=== PATIENT | male | born 1965 | race African-American/Black ===

== ENCOUNTER 2018-12-31 13:51 | Inpatient (IN) | payer OTHER ==
[2018-12-31 18:07] VITALS: BMI 25.7
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
[2018-12-31] MEDS ORDERED: MELATONIN 5 MG TABLETS PO PRN (18:47)
[2018-12-31] MEDS ORDERED: NICOTINE POLACRILEX 4 MG GUM BUC PRN (18:47)
[2018-12-31] MEDS ORDERED: BISMUTH SUBSALICYLATE 524 MG/30 ML UD PO PRN (18:47)
[2018-12-31] MEDS ORDERED: hydrOXYzine PAMOATE 25 MG CAPSULE (FP) PO PRN (18:47)
[2018-12-31] MEDS ORDERED: ACETAMINOPHEN 325 MG TABLET (FP) PO PRN ×2 (18:47)
[2018-12-31] MEDS ORDERED: METHOCARBAMOL 500 MG TABLET PO PRN (18:47)
[2018-12-31] MEDS ORDERED: chlordiazePOXIDE HCL 25 MG CAPSULE PO PRN (18:47)
[2018-12-31] MEDS ORDERED: IBUPROFEN 400 MG TABLET (FP) PO PRN (18:47)
[2018-12-31] MEDS ORDERED: MAG HYDROX/AL HYDROX/SIMETH 30 ML UNIT-DOSE CUP PO PRN (18:47)
[2018-12-31] MEDS ORDERED: chlordiazePOXIDE HCL 25 MG CAPSULE PO ONE (18:47)
[2018-12-31] MEDS ORDERED: MENTHOL/PHENOL 1 EACH UD MM PRN (18:47)
[2018-12-31] MEDS ORDERED: ONDANSETRON *ODT* 4 MG TABLET SL PRN (18:47)
[2018-12-31] MEDS ORDERED: MAGNESIUM HYDROX 2400MG/30ML ORAL SUSPENSION 30 ML CUP PO PRN (18:47)
[2018-12-31] MEDS ORDERED: MAGNESIUM CITRATE 300 ML BOTTLE PO PRN (18:47)
[2018-12-31] MEDS: THIAMINE HCL 100 MG TABLET (FP) PO SCH (22:44)
[2018-12-31] MEDS: chlordiazePOXIDE HCL 25 MG CAPSULE PO SCH (22:44)
[2019-01-01] MEDS: chlordiazePOXIDE HCL 25 MG CAPSULE PO SCH ×4 (05:39→23:17)
[2019-01-01 09:38] LABS: HEMATOCRIT 43.9 % (35.4-49); HEMOGLOBIN 14.8 GM/dL (11.7-16.9); MCH 33.3 pg (25.7-33.7); MCHC 33.6 g/dl (32.0-35.9); MEAN CELL VOLUME 99.2 fl (80-96); MEAN PLT VOLUME 7.8 fl (7.5-11.1); PLATELET COUNT 251 K/MM3 (134-434); RBC 4.43 M/mm3 (4.00-5.60); RDW 12.8 % (11.9-15.9); WHITE BLOOD COUNT 5.2 K/mm3 (4.0-10.0)
[2019-01-01 10:02] LABS: ALBUMIN 3.6 g/dl (3.4-5.0); BILIRUBIN,TOTAL 0.6 mg/dL (0.2-1); BLOOD UREA NITROGEN 20.1 mg/dL (7-18); CALCIUM 8.5 mg/dL (8.5-10.1); CREATININE 1.1 mg/dL (0.55-1.3); POTASSIUM 4.2 mmol/L (3.5-5.1); TOT PROT 6.7 g/dl (6.4-8.2)
--- NOTE | 2019-01-01 10:05 | PN ---
S CIWA - CIWA Score Nausea/Vomitin Muscle Tremors: 2 Anxiety: 2 Agitation: 2 Paroxysmal Sweats: 1-Minimal Palms Moist Orientation: 0-Oriented Tacttile Disturbances: 1-Very Mild Itch/Numbness Auditory Disturbances: 1-Very Mild Visual Disturbances: 0-None Headache: 2-Mild CIWA-Ar Total Score: 13 [facility] Progress Note (SOAP) Subjective: alert,irritable,anxious,interrupted sleep,tremor Objective: 01/01/19 10:04 Vital Signs Temperature 98.1 F 01/01/19 09:10 Pulse Rate 70 01/01/19 09:10 Respiratory Rate 18 01/01/19 09:10 Blood Pressure 104/47 L 01/01/19 09:10 O2 Sat by Pulse Oximetry (%) 01/01/19 10:04 Laboratory Last Values WBC 5.2 K/mm3 (4.0-10.0) 01/01/19 07:30 RBC 4.43 M/mm3 (4.00-5.60) 01/01/19 07:30 Hgb 14.8 GM/dL (11.7-16.9) 01/01/19 07:30 Hct 43.9 % (35.4-49) 01/01/19 07:30 MCV 99.2 fl (80-96) H 01/01/19 07:30 MCH 33.3 pg (25.7-33.7) 01/01/19 07:30 MCHC 33.6 g/dl (32.0-35.9) 01/01/19 07:30 RDW 12.8 % (11.9-15.9) 01/01/19 07:30 Plt Count 251 K/MM3 (134-434) 01/01/19 07:30 MPV 7.8 fl (7.5-11.1) 01/01/19 07:30 Sodium 138 mmol/L (136-145) 01/01/19 07:30 Potassium 4.2 mmol/L (3.5-5.1) 01/01/19 07:30 Chloride 105 mmol/L (98-107) 01/01/19 07:30 Carbon Dioxide 27 mmol/L (21-32) 01/01/19 07:30 Anion Gap 6 MMOL/L (8-16) L 01/01/19 07:30 BUN 20.1 mg/dL (7-18) H 01/01/19 07:30 Creatinine 1.1 mg/dL (0.55-1.3) 01/01/19 07:30 Est GFR (CKD-EPI)AfAm 87.13 01/01/19 07:30 Est GFR (CKD-EPI)NonAf 75.17 01/01/19 07:30 Random Glucose 87 mg/dL (74-106) 01/01/19 07:30 Calcium 8.5 mg/dL (8.5-10.1) 01/01/19 07:30 Total Bilirubin 0.6 mg/dL (0.2-1) 01/01/19 07:30 AST 22 U/L (15-37) 01/01/19 07:30 ALT 26 U/L (13-61) 01/01/19 07:30 Alkaline Phosphatase 56 U/L (45-117) 01/01/19 07:30 Total Protein 6.7 g/dl (6.4-8.2) 01/01/19 07:30 Albumin 3.6 g/dl (3.4-5.0) 01/01/19 07:30 Assessment: 01/01/19 10:05 withdrawal symptom Plan: continue detox
[2019-01-01] MEDS: PRENATAL VITAMINS W/ FOLIC ACID TABLET (FP) PO SCH (11:00)
[2019-01-01] MEDS: NICOTINE 21 MG/24 HOURS TOPICAL PATCH TD SCH (11:00)
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
--- NOTE | 2019-01-01 12:33 | EKG ---
Test Reason : Blood Pressure : / mmHG Vent. Rate : 065 BPM Atrial Rate : 065 BPM P-R Int : 164 ms QRS Dur : 076 ms QT Int : 414 ms P-R-T Axes : 065 060 070 degrees QTc Int : 430 ms NORMAL SINUS RHYTHM NORMAL ECG NO PREVIOUS ECGS AVAILABLE Confirmed by MICHELLE REYNOLDS, AIME ([id number]) on 01/01/2019 12:33:17 PM Referred By: Confirmed By:AIME MARTINEZ MD
[2019-01-01] MEDS: GABAPENTIN 300 MG CAPSULE (FP) PO SCH ×2 (13:00→23:17)
[2019-01-01] MEDS: DIVALPROEX SODIUM 500 MG TABLET E.C. PO SCH ×3 (13:30→23:17)
[2019-01-01] MEDS: buPROPion HCL 100 MG TABLET PO SCH ×2 (13:46→13:51)
[2019-01-01] MEDS: QUEtiapine FUMARATE 200 MG TABLET PO SCH (23:18)
[2019-01-01] MEDS: OLANZapine 10 MG TABLET PO SCH (23:18)
[2019-01-01] MEDS: THIAMINE HCL 100 MG TABLET (FP) PO SCH (23:18)
[2019-01-02] MEDS: chlordiazePOXIDE HCL 25 MG CAPSULE PO SCH ×3 (07:26→19:04)
--- NOTE | 2019-01-02 10:00 | PN ---
S CIWA - CIWA Score Nausea/Vomitin Muscle Tremors: 2 Anxiety: 2 Agitation: 2 Paroxysmal Sweats: No Perspiration Orientation: 0-Oriented Tacttile Disturbances: 0-None Auditory Disturbances: 1-Very Mild Visual Disturbances: 0-None Headache: 1-Very Mild CIWA-Ar Total Score: 10 S Progress Note (SOAP) Subjective: alert,irritable,anxious,interrupted sleep Objective: 01/02/19 09:57 Vital Signs Temperature 97.5 F L 01/02/19 06:00 Pulse Rate 58 L 01/02/19 06:00 Respiratory Rate 18 01/02/19 06:00 Blood Pressure 113/73 01/02/19 06:00 O2 Sat by Pulse Oximetry (%) 01/02/19 09:58 Laboratory Last Values WBC 5.2 K/mm3 (4.0-10.0) 01/01/19 07:30 RBC 4.43 M/mm3 (4.00-5.60) 01/01/19 07:30 Hgb 14.8 GM/dL (11.7-16.9) 01/01/19 07:30 Hct 43.9 % (35.4-49) 01/01/19 07:30 MCV 99.2 fl (80-96) H 01/01/19 07:30 MCH 33.3 pg (25.7-33.7) 01/01/19 07:30 MCHC 33.6 g/dl (32.0-35.9) 01/01/19 07:30 RDW 12.8 % (11.9-15.9) 01/01/19 07:30 Plt Count 251 K/MM3 (134-434) 01/01/19 07:30 MPV 7.8 fl (7.5-11.1) 01/01/19 07:30 Sodium 138 mmol/L (136-145) 01/01/19 07:30 Potassium 4.2 mmol/L (3.5-5.1) 01/01/19 07:30 Chloride 105 mmol/L (98-107) 01/01/19 07:30 Carbon Dioxide 27 mmol/L (21-32) 01/01/19 07:30 Anion Gap 6 MMOL/L (8-16) L 01/01/19 07:30 BUN 20.1 mg/dL (7-18) H 01/01/19 07:30 Creatinine 1.1 mg/dL (0.55-1.3) 01/01/19 07:30 Est GFR (CKD-EPI)AfAm 87.13 01/01/19 07:30 Est GFR (CKD-EPI)NonAf 75.17 01/01/19 07:30 Random Glucose 87 mg/dL (74-106) 01/01/19 07:30 Calcium 8.5 mg/dL (8.5-10.1) 01/01/19 07:30 Total Bilirubin 0.6 mg/dL (0.2-1) 01/01/19 07:30 AST 22 U/L (15-37) 01/01/19 07:30 ALT 26 U/L (13-61) 01/01/19 07:30 Alkaline Phosphatase 56 U/L (45-117) 01/01/19 07:30 Total Protein 6.7 g/dl (6.4-8.2) 01/01/19 07:30 Albumin 3.6 g/dl (3.4-5.0) 01/01/19 07:30 RPR Titer Nonreactive (NONREACTIVE) 01/01/19 07:30 HIV 1&2 Antibody Screen Negative 01/01/19 07:30 HIV P24 Antigen Negative 01/01/19 07:30 Assessment: 01/02/19 09:58 withdrawal symptom Plan: continue detox
--- NOTE | 2019-01-02 10:06 | PN ---
S CIWA - CIWA Score Nausea/Vomitin Muscle Tremors: 2 Anxiety: 2 Agitation: 2 Paroxysmal Sweats: No Perspiration Orientation: 0-Oriented Tacttile Disturbances: 1-Very Mild Itch/Numbness Auditory Disturbances: 0-None Visual Disturbances: 0-None Headache: 2-Mild CIWA-Ar Total Score: 11 S Progress Note (SOAP) Subjective: alert,irritable,anxious,interrupted sleep,stated having pain in right leg was treated for cellulitis of right leg on keflex po tid Objective: 01/02/19 10:03 Vital Signs Temperature 97.5 F L 01/02/19 06:00 Pulse Rate 58 L 01/02/19 06:00 Respiratory Rate 18 01/02/19 06:00 Blood Pressure 113/73 01/02/19 06:00 O2 Sat by Pulse Oximetry (%) 01/02/19 10:03 Laboratory Last Values WBC 5.2 K/mm3 (4.0-10.0) 01/01/19 07:30 RBC 4.43 M/mm3 (4.00-5.60) 01/01/19 07:30 Hgb 14.8 GM/dL (11.7-16.9) 01/01/19 07:30 Hct 43.9 % (35.4-49) 01/01/19 07:30 MCV 99.2 fl (80-96) H 01/01/19 07:30 MCH 33.3 pg (25.7-33.7) 01/01/19 07:30 MCHC 33.6 g/dl (32.0-35.9) 01/01/19 07:30 RDW 12.8 % (11.9-15.9) 01/01/19 07:30 Plt Count 251 K/MM3 (134-434) 01/01/19 07:30 MPV 7.8 fl (7.5-11.1) 01/01/19 07:30 Sodium 138 mmol/L (136-145) 01/01/19 07:30 Potassium 4.2 mmol/L (3.5-5.1) 01/01/19 07:30 Chloride 105 mmol/L (98-107) 01/01/19 07:30 Carbon Dioxide 27 mmol/L (21-32) 01/01/19 07:30 Anion Gap 6 MMOL/L (8-16) L 01/01/19 07:30 BUN 20.1 mg/dL (7-18) H 01/01/19 07:30 Creatinine 1.1 mg/dL (0.55-1.3) 01/01/19 07:30 Est GFR (CKD-EPI)AfAm 87.13 01/01/19 07:30 Est GFR (CKD-EPI)NonAf 75.17 01/01/19 07:30 Random Glucose 87 mg/dL (74-106) 01/01/19 07:30 Calcium 8.5 mg/dL (8.5-10.1) 01/01/19 07:30 Total Bilirubin 0.6 mg/dL (0.2-1) 01/01/19 07:30 AST 22 U/L (15-37) 01/01/19 07:30 ALT 26 U/L (13-61) 01/01/19 07:30 Alkaline Phosphatase 56 U/L (45-117) 01/01/19 07:30 Total Protein 6.7 g/dl (6.4-8.2) 01/01/19 07:30 Albumin 3.6 g/dl (3.4-5.0) 01/01/19 07:30 RPR Titer Nonreactive (NONREACTIVE) 01/01/19 07:30 HIV 1&2 Antibody Screen Negative 01/01/19 07:30 HIV P24 Antigen Negative 01/01/19 07:30 Assessment: 01/02/19 10:04 withdrawal symptom 01/02/19 10:05 right leg slight redness,resolving cellulitis of right leg Plan: continue detox,continue keflex 500 mgs po tid for 7days for resolving cellulitis of right leg
--- NOTE | 2019-01-02 10:10 | PN ---
S Progress Note Note: please disregard note on this patient at 10.01 am ,reason belong to other patient
[2019-01-02] MEDS: GABAPENTIN 300 MG CAPSULE (FP) PO SCH ×2 (11:00→23:00)
[2019-01-02] MEDS: NICOTINE 21 MG/24 HOURS TOPICAL PATCH TD SCH (11:00)
[2019-01-02] MEDS: buPROPion HCL 100 MG TABLET PO SCH (11:00)
[2019-01-02] MEDS: DIVALPROEX SODIUM 500 MG TABLET E.C. PO SCH ×2 (11:00→23:00)
[2019-01-02] MEDS: PRENATAL VITAMINS W/ FOLIC ACID TABLET (FP) PO SCH (11:00)
[2019-01-02] MEDS ORDERED: CEPHALEXIN MONOHYDRATE 500 MG CAPSULE (UD) PO SCH (14:00)
[2019-01-02] MEDS: OLANZapine 10 MG TABLET PO SCH (23:00)
[2019-01-02] MEDS: THIAMINE HCL 100 MG TABLET (FP) PO SCH (23:00)
[2019-01-02] MEDS: QUEtiapine FUMARATE 200 MG TABLET PO SCH (23:00)
[2019-01-02] MEDS: chlordiazePOXIDE HCL 10 MG CAPSULE PO SCH (23:01)
[2019-01-03] MEDS: chlordiazePOXIDE HCL 10 MG CAPSULE PO SCH ×4 (06:00→22:19)
--- NOTE | 2019-01-03 10:23 | PN ---
S Progress Note Note: PATIENT C/O MILD BODY ACHES AND FEELING TIRED. Vital Signs Temperature 97.9 F 01/03/19 09:01 Pulse Rate 62 01/03/19 09:01 Respiratory Rate 16 01/03/19 09:01 Blood Pressure 114/60 01/03/19 09:01 O2 Sat by Pulse Oximetry (%) Laboratory Tests 01/01/19 01/01/19 01/01/19 07:30 07:30 07:30 WBC 5.2 RBC 4.43 Hgb 14.8 Hct 43.9 MCV 99.2 H MCH 33.3 MCHC 33.6 RDW 12.8 Plt Count 251 MPV 7.8 Sodium 138 Potassium 4.2 Chloride 105 Carbon Dioxide 27 Anion Gap 6 L BUN 20.1 H Creatinine 1.1 Est GFR (CKD-EPI)AfAm 87.13 Est GFR (CKD-EPI)NonAf 75.17 Random Glucose 87 Calcium 8.5 Total Bilirubin 0.6 AST 22 ALT 26 Alkaline Phosphatase 56 Total Protein 6.7 Albumin 3.6 RPR Titer Nonreactive HIV 1&2 Antibody Screen HIV P24 Antigen 01/01/19 07:30 WBC RBC Hgb Hct MCV MCH MCHC RDW Plt Count MPV Sodium Potassium Chloride Carbon Dioxide Anion Gap BUN Creatinine Est GFR (CKD-EPI)AfAm Est GFR (CKD-EPI)NonAf Random Glucose Calcium Total Bilirubin AST ALT Alkaline Phosphatase Total Protein Albumin RPR Titer HIV 1&2 Antibody Screen Negative HIV P24 Antigen Negative PE: ALERT AND ORIENTED X 3 SKIN WARM AND DRY + PERRLA, EOMS INTACT EXT NO VISIBLE TREMORS A/P: WITHDRAWAL SX CONTINUE DETOX D/C IN AM MONITOR CLINICALLY
[2019-01-03] MEDS: PRENATAL VITAMINS W/ FOLIC ACID TABLET (FP) PO SCH (11:27)
[2019-01-03] MEDS: GABAPENTIN 300 MG CAPSULE (FP) PO SCH ×2 (11:27→21:38)
[2019-01-03] MEDS: DIVALPROEX SODIUM 500 MG TABLET E.C. PO SCH ×2 (11:27→21:38)
[2019-01-03] MEDS: NICOTINE 21 MG/24 HOURS TOPICAL PATCH TD SCH (11:27)
[2019-01-03] MEDS: buPROPion HCL 100 MG TABLET PO SCH (11:28)
[2019-01-03] MEDS: QUEtiapine FUMARATE 200 MG TABLET PO SCH (21:37)
[2019-01-03] MEDS: THIAMINE HCL 100 MG TABLET (FP) PO SCH (21:37)
[2019-01-03] MEDS: OLANZapine 10 MG TABLET PO SCH (21:38)
[2019-01-04] MEDS: chlordiazePOXIDE HCL 10 MG CAPSULE PO SCH (10:07)
[2019-01-04] MEDS: DIVALPROEX SODIUM 500 MG TABLET E.C. PO SCH (10:07)
[2019-01-04] MEDS: buPROPion HCL 100 MG TABLET PO SCH (10:07)
[2019-01-04] MEDS: GABAPENTIN 300 MG CAPSULE (FP) PO SCH (10:07)
[2019-01-04] MEDS: PRENATAL VITAMINS W/ FOLIC ACID TABLET (FP) PO SCH (10:08)
[2019-01-04] MEDS: NICOTINE 21 MG/24 HOURS TOPICAL PATCH TD SCH (10:08)
--- NOTE | 2019-01-04 12:15 | PN ---
S CIWA - CIWA Score Nausea/Vomitin-No Nausea/No Vomiting Muscle Tremors: None Anxiety: 2 Agitation: 2 Paroxysmal Sweats: 2 Orientation: 0-Oriented Tacttile Disturbances: 0-None Auditory Disturbances: 0-None Visual Disturbances: 0-None Headache: 0-None Present CIWA-Ar Total Score: 6 [facility] Progress Note (SOAP) Subjective: Nausea, sweating. Objective: 01/04/19 12:18 Last Vital Signs Temp Pulse Resp BP Pulse Ox 97.9 F 58 L 14 96/67 01/04/19 09:35 01/04/19 09:35 01/04/19 09:35 01/04/19 09:35 Laboratory Tests 01/01/19 01/01/19 01/01/19 07:30 07:30 07:30 WBC 5.2 RBC 4.43 Hgb 14.8 Hct 43.9 MCV 99.2 H MCH 33.3 MCHC 33.6 RDW 12.8 Plt Count 251 MPV 7.8 Sodium 138 Potassium 4.2 Chloride 105 Carbon Dioxide 27 Anion Gap 6 L BUN 20.1 H Creatinine 1.1 Est GFR (CKD-EPI)AfAm 87.13 Est GFR (CKD-EPI)NonAf 75.17 Random Glucose 87 Calcium 8.5 Total Bilirubin 0.6 AST 22 ALT 26 Alkaline Phosphatase 56 Total Protein 6.7 Albumin 3.6 RPR Titer Nonreactive HIV 1&2 Antibody Screen HIV P24 Antigen 01/01/19 07:30 WBC RBC Hgb Hct MCV MCH MCHC RDW Plt Count MPV Sodium Potassium Chloride Carbon Dioxide Anion Gap BUN Creatinine Est GFR (CKD-EPI)AfAm Est GFR (CKD-EPI)NonAf Random Glucose Calcium Total Bilirubin AST ALT Alkaline Phosphatase Total Protein Albumin RPR Titer HIV 1&2 Antibody Screen Negative HIV P24 Antigen Negative Labs reviewed Assessment: 01/04/19 12:18 Withdrawal symptoms Plan: Continue detox Noted with hypotension: asymptomatic, encouraged PO water hydration
[2019-01-04 17:52] VITALS: BP 106/72; PULSE 65; TEMP 97.7
--- NOTE | 2019-01-04 18:27 | PN ---
S Progress Note Note: patient would like to leave for personal issue,feeling well,patient stable for discharge,follow up with [facility] as arrangement
--- NOTE | 2019-01-04 18:32 | PN ---
[facility] Progress Note Note: patient has all medications with him
--- NOTE | 2019-01-04 18:32 | DS ---
[facility] Detox Discharge Summary Admission Date: 12/31/18 Discharge Date: 01/04/19 - History Present History: Alcohol Dependence, Cocaine Dependence Additional Comments: follow up with after care [facility] as arrangement Pertinent Past History: nicotine dependence bipolar disorder - Physical Exam Results Vital Signs: Vital Signs Temperature 97.7 F 01/04/19 17:52 Pulse Rate 65 01/04/19 17:52 Respiratory Rate 16 01/04/19 17:52 Blood Pressure 106/72 01/04/19 17:52 O2 Sat by Pulse Oximetry (%) Pertinent Admission Physical Exam Findings: withdrawal signs and symptom Laboratory Last Values WBC 5.2 K/mm3 (4.0-10.0) 01/01/19 07:30 RBC 4.43 M/mm3 (4.00-5.60) 01/01/19 07:30 Hgb 14.8 GM/dL (11.7-16.9) 01/01/19 07:30 Hct 43.9 % (35.4-49) 01/01/19 07:30 MCV 99.2 fl (80-96) H 01/01/19 07:30 MCH 33.3 pg (25.7-33.7) 01/01/19 07:30 MCHC 33.6 g/dl (32.0-35.9) 01/01/19 07:30 RDW 12.8 % (11.9-15.9) 01/01/19 07:30 Plt Count 251 K/MM3 (134-434) 01/01/19 07:30 MPV 7.8 fl (7.5-11.1) 01/01/19 07:30 Sodium 138 mmol/L (136-145) 01/01/19 07:30 Potassium 4.2 mmol/L (3.5-5.1) 01/01/19 07:30 Chloride 105 mmol/L (98-107) 01/01/19 07:30 Carbon Dioxide 27 mmol/L (21-32) 01/01/19 07:30 Anion Gap 6 MMOL/L (8-16) L 01/01/19 07:30 BUN 20.1 mg/dL (7-18) H 01/01/19 07:30 Creatinine 1.1 mg/dL (0.55-1.3) 01/01/19 07:30 Est GFR (CKD-EPI)AfAm 87.13 01/01/19 07:30 Est GFR (CKD-EPI)NonAf 75.17 01/01/19 07:30 Random Glucose 87 mg/dL (74-106) 01/01/19 07:30 Calcium 8.5 mg/dL (8.5-10.1) 01/01/19 07:30 Total Bilirubin 0.6 mg/dL (0.2-1) 01/01/19 07:30 AST 22 U/L (15-37) 01/01/19 07:30 ALT 26 U/L (13-61) 01/01/19 07:30 Alkaline Phosphatase 56 U/L (45-117) 01/01/19 07:30 Total Protein 6.7 g/dl (6.4-8.2) 01/01/19 07:30 Albumin 3.6 g/dl (3.4-5.0) 01/01/19 07:30 RPR Titer Nonreactive (NONREACTIVE) 01/01/19 07:30 HIV 1&2 Antibody Screen Negative 01/01/19 07:30 HIV P24 Antigen Negative 01/01/19 07:30 Vital Signs Temperature 97.7 F 01/04/19 17:52 Pulse Rate 65 01/04/19 17:52 Respiratory Rate 16 01/04/19 17:52 Blood Pressure 106/72 01/04/19 17:52 O2 Sat by Pulse Oximetry (%) - Treatment Hospital Course: Detox Protocol Followed, Detoxed Safely, Responded well, Discharged Condition Good, Rehab Referral Accepted Patient has Accepted a Rehab Referral to: [facility] - Medication Discharge Medications: Ambulatory Orders Bupropion HCl 100 mg PO DAILY 12/31/18 Divalproex Sodium 500 mg PO BID 12/31/18 Gabapentin 300 mg PO QID 12/31/18 Olanzapine [ZyPREXA -] 30 mg PO HS 12/31/18 Quetiapine Fumarate [Seroquel -] 200 mg PO BID 12/31/18 - AMA Did Patient Leave Against Medical Advice: No
== END 2019-01-04 18:45 | disposition home or self-care (01) | DRG 774 ==
LOC: YASAS 13:51 → Y6N 19:10
PROVIDERS: ADMIT Surgery; ATTEND Surgery
PROC: HZ2ZZZZ Detoxification Services for Substance Abuse Treatment (ICD-10-PCS; principal; 2018-12-31)
DX: F10.230 Alcohol dependence with withdrawal, uncomplicated (principal); F14.20 Cocaine dependence, uncomplicated; F17.210 Nicotine dependence, cigarettes, uncomplicated; F19.24 Other psychoactive substance dependence with psychoactive substance-induced mood disorder; F19.282 Other psychoactive substance dependence with psychoactive substance-induced sleep disorder; F31.5 Bipolar disorder, current episode depressed, severe, with psychotic features; I95.9 Hypotension, unspecified; L03.115 Cellulitis of right lower limb; Z91.5 Personal history of self-harm; Z91.013 Allergy to seafood; Z88.0 Allergy status to penicillin
CPT/HCPCS: 36415; 80053; 85027; 86593; 87389; 93005; 93010

== ENCOUNTER 2019-03-25 12:07 | Inpatient (IN) | payer OTHER | END 2019-03-30 19:23 | disposition other institution (70) | LOC: YASAS 12:07 → Y3N 16:57 ==

== ENCOUNTER 2019-03-30 19:28 | Inpatient (IN) | payer OTHER ==
--- NOTE | 2019-03-30 13:38 | HP ---
ZACH REYNOLDS Rehab Assess/Revision - Admission History Admitted to Rehab from: [facility] Date of Admission to Rehab: 03/30/19 - Findings Detox History & Physical reviewed: Yes Concur with findings: Yes Comments/Additional Findings: transferred from detox to rehab admission as per [facility] Inpatient Rehab Admission - Rehab Decision to Admit Inpatient rehab admission?: Yes - Initial Determination Are CD services needed?: Yes Free of communicable disease: Yes Not in need of hospitalization: Yes - Rehab Admission Criteria Previous failed treatment: Yes Poor recovery environment: Yes Comorbidities: Yes Lacks judgement: Yes Patient is meeting Inpatient Rehab admission criteria:: Yes
[~2019-03-30 19:28] MED LIST: ACETAMINOPHEN 325 MG TABLET (FP) PO PRN; IBUPROFEN 400 MG TABLET (FP) PO PRN; LOPERAMIDE HCL 2 MG CAPSULE PO PRN; MAG HYDROX/AL HYDROX/SIMETH 30 ML UNIT-DOSE CUP PO PRN; MAGNESIUM CITRATE 300 ML BOTTLE PO PRN; MAGNESIUM HYDROX 2400MG/30ML ORAL SUSPENSION 30 ML CUP PO PRN; NICOTINE 7 MG/24 HOURS TOPICAL PATCH TD PRN; NICOTINE POLACRILEX 2 MG GUM BC PRN; P-EPHED 60MG/TRIPROLIDI 2.5MG TABLET PO PRN; guaiFENesin 200 MG/10 ML 10 ML UNIT-DOSE CUPS PO PRN
[2019-03-30] MEDS ORDERED: MELATONIN 5 MG TABLETS PO PRN (22:00)
[2019-03-30] MEDS: THIAMINE HCL 100 MG TABLET (FP) PO SCH (23:35)
[2019-03-30] MEDS: DOXEPIN HCL 25 MG CAPSULE PO SCH (23:36)
[2019-03-30] MEDS: OLANZapine 10 MG TABLET PO SCH (23:36)
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
[2019-03-31] MEDS: PRENATAL VITAMINS W/ FOLIC ACID TABLET (FP) PO SCH (10:32)
[2019-03-31] MEDS: THIAMINE HCL 100 MG TABLET (FP) PO SCH (21:42)
[2019-03-31] MEDS: OLANZapine 10 MG TABLET PO SCH (21:42)
[2019-03-31] MEDS: DOXEPIN HCL 25 MG CAPSULE PO SCH (21:43)
[2019-04-01] MEDS: PRENATAL VITAMINS W/ FOLIC ACID TABLET (FP) PO SCH (11:00)
[2019-04-01] MEDS: THIAMINE HCL 100 MG TABLET (FP) PO SCH (22:32)
[2019-04-01] MEDS: OLANZapine 10 MG TABLET PO SCH (22:32)
[2019-04-01] MEDS: DOXEPIN HCL 25 MG CAPSULE PO SCH (22:32)
[2019-04-02] MEDS: PRENATAL VITAMINS W/ FOLIC ACID TABLET (FP) PO SCH (10:21)
[2019-04-02] MEDS: NICOTINE 7 MG/24 HOURS TOPICAL PATCH TD PRN (11:08)
[2019-04-02] MEDS: DOXEPIN HCL 25 MG CAPSULE PO SCH (21:48)
[2019-04-02] MEDS: THIAMINE HCL 100 MG TABLET (FP) PO SCH (21:48)
[2019-04-02] MEDS: MENTHOL/PHENOL 1 EACH UD MM PRN (21:48)
[2019-04-02] MEDS: OLANZapine 10 MG TABLET PO SCH (21:48)
[2019-04-03] MEDS: PRENATAL VITAMINS W/ FOLIC ACID TABLET (FP) PO SCH (10:47)
[2019-04-03] MEDS: OLANZapine 10 MG TABLET PO SCH (21:51)
[2019-04-03] MEDS: DOXEPIN HCL 25 MG CAPSULE PO SCH (21:51)
[2019-04-03] MEDS: MENTHOL/PHENOL 1 EACH UD MM PRN (21:52)
[2019-04-03] MEDS: THIAMINE HCL 100 MG TABLET (FP) PO SCH (21:52)
[2019-04-04 07:39] VITALS: PULSE 64
[2019-04-04] MEDS: PRENATAL VITAMINS W/ FOLIC ACID TABLET (FP) PO SCH (10:07)
[2019-04-04] MEDS: THIAMINE HCL 100 MG TABLET (FP) PO SCH (21:48)
[2019-04-04] MEDS: DOXEPIN HCL 25 MG CAPSULE PO SCH (21:48)
[2019-04-04] MEDS: MENTHOL/PHENOL 1 EACH UD MM PRN (21:50)
[2019-04-04] MEDS: OLANZapine 10 MG TABLET PO SCH (22:46)
[2019-04-05] MEDS: PRENATAL VITAMINS W/ FOLIC ACID TABLET (FP) PO SCH (10:17)
[2019-04-05] MEDS: NICOTINE 7 MG/24 HOURS TOPICAL PATCH TD PRN (10:17)
[2019-04-05] MEDS: OLANZapine 10 MG TABLET PO SCH (21:44)
[2019-04-05] MEDS: DOXEPIN HCL 25 MG CAPSULE PO SCH (21:44)
[2019-04-05] MEDS: THIAMINE HCL 100 MG TABLET (FP) PO SCH (21:45)
[2019-04-05] MEDS: MENTHOL/PHENOL 1 EACH UD MM PRN (21:46)
[2019-04-06 07:18] VITALS: BP 94/70; TEMP 97.6
[2019-04-06] MEDS: PRENATAL VITAMINS W/ FOLIC ACID TABLET (FP) PO SCH (10:40)
--- NOTE | 2019-04-06 13:20 | DS ---
[facility] Rehab Discharge Summary - [facility] Rehab Discharge Summary Admission Date: 03/30/19 Discharge Date: 04/06/19 - History Present History: Alcohol dependence, Cocaine dependence Additional Comments: Pt requesting to be discharged today for family issues-states family member has high blood pressure and going to the hospital and needs to care for his 16 yr old daughter. Pt has been referred to call [facility] for follow up CD aftercare treatment. Pertinent Past History: Bipolar disorder Denies PMHx - Discharge Physical Exam Vital Signs: Vital Signs Temperature 97.6 F 04/06/19 07:17 Pulse Rate 64 04/06/19 07:17 Respiratory Rate 18 04/06/19 07:17 Blood Pressure 94/70 04/06/19 07:17 O2 Sat by Pulse Oximetry (%) Alert o x 3 nad oob, ambulating with steady gait Cardiac:s1 s2, rrr Lungs:cta,elodia. Abdomen:soft,+bs,nt,nd Extremities/Skin:no edema,no cyanosis; skin intact. Pertinent Admission Physical Exam Findings: Laboratory Tests 03/31/19 07:38 POC Glucometer 102 unremarkable/unchanged - Treatment Discharge Condition: Discharge condition good Hospital Course: Rehabilitated safely and responded well Accepted aftercare referral - Medication Discharge Medications: Ambulatory Orders Olanzapine [ZyPREXA -] 30 mg PO HS 12/31/18 - Medication-Assisted Treatment (MAT) Medication-Assisted Treatment (MAT): No - Discharge Instructions Diet, activity, other medical instructions: Diet:Regular Activity: oob, ad femi Other medical instructions:Follow up wit primary care at [facility] clinic as above. follow up with CD aftercare recommendation at [facility]. - Diagnosis (1) Alcohol dependence Status: Chronic Qualifiers: Substance use status: uncomplicated Qualified Code(s): F10.20 - Alcohol dependence, uncomplicated (2) Cocaine dependence Status: Chronic Qualifiers: Substance use status: uncomplicated Qualified Code(s): F14.20 - Cocaine dependence, uncomplicated (3) Nicotine dependence Status: Chronic Qualifiers: Nicotine product type: cigarettes Substance use status: uncomplicated Qualified Code(s): F17.210 - Nicotine dependence, cigarettes, uncomplicated - Follow-up Referral Minutes to complete discharge: 20 - AMA Did Patient Leave Against Medical Advice: No Additional Comments: Pt reports he has own primary care with [facility] on [address] [place], [place]. Pt states he has won meds in his belonging.
== END 2019-04-06 14:45 | disposition home or self-care (01) | DRG 772 ==
LOC: YASAS 19:28 → Y5N 19:29
PROVIDERS: ADMIT Neuromusculoskeletal Medicine & OMM; ATTEND Neuromusculoskeletal Medicine & OMM
PROC: HZ42ZZZ Group Counseling for Substance Abuse Treatment, Cognitive-Behavioral (ICD-10-PCS; principal; 2019-04-06)
DX: F10.20 Alcohol dependence, uncomplicated (principal); F14.20 Cocaine dependence, uncomplicated; F17.210 Nicotine dependence, cigarettes, uncomplicated; F19.282 Other psychoactive substance dependence with psychoactive substance-induced sleep disorder; F31.9 Bipolar disorder, unspecified
CPT/HCPCS: 82962

== ENCOUNTER 2020-01-06 12:43 | Inpatient (IN) | payer OTHER ==
--- NOTE | 2020-01-06 13:34 | BHS.RME ---
Substance Use & Tx History - Substance Use History Alcohol Substance amount: 3-4 pints vodka and beers Frequency of use: Daily Substance route: Oral Date of Last Use: 01/05/20 Cocaine- Powder Substance amount: $50 Frequency of use: Daily Substance route: Inhalation (ex: sniffing or snorting) Date of Last Use: 01/05/20 Cocaine-Crack Substance amount: $200 Frequency of use: Daily Substance route: Smoking Date of Last Use: 01/05/20 Physical/Psych/Mental Status - Behavior General Behavior: Increased activity (restlessness, agitation) Eye Contact: Normal - Cooperativeness Cooperativeness: Cooperative - Thinking Thought Processes: Tight, Logical, Goal Directed - Physical Health Problems Is patient presently having any pain?: No Does patient presently have any injuries (include location): No Does patient currently have a fever: No Is patient : No CIWA Nausea/Vomitin Muscle Tremors: 4-Moderate,w/Arms Extend Anxiety: 3 Agitation: 3 Paroxysmal Sweats: 4-Forehead w/Sweat Beads Orientation: 0-Oriented Tacttile Disturbances: 0-None Auditory Disturbances: 0-None Visual Disturbances: 0-None Headache: 0-None Present CIWA-Ar Total Score: 16
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
[2020-01-06] MEDS ORDERED: IBUPROFEN 400 MG TABLET (FP) PO PRN (14:58)
[2020-01-06] MEDS ORDERED: MAG HYDROX/AL HYDROX/SIMETH 30 ML UNIT-DOSE CUP PO PRN (14:58)
[2020-01-06] MEDS ORDERED: ACETAMINOPHEN 325 MG TABLET (FP) PO PRN ×2 (14:58)
[2020-01-06] MEDS ORDERED: METHOCARBAMOL 500 MG TABLET PO PRN (14:58)
[2020-01-06] MEDS ORDERED: MENTHOL/PHENOL 1 EACH UD MM PRN (14:58)
[2020-01-06] MEDS ORDERED: BISMUTH SUBSALICYLATE 262 MG/15 ML BTL PO PRN (14:58)
[2020-01-06] MEDS ORDERED: chlordiazePOXIDE HCL 25 MG CAPSULE PO PRN (14:58)
[2020-01-06] MEDS ORDERED: NICOTINE POLACRILEX 2 MG GUM BUC PRN (14:58)
[2020-01-06] MEDS ORDERED: MAGNESIUM HYDROX 2400MG/30ML ORAL SUSPENSION 30 ML CUP PO PRN (14:58)
[2020-01-06] MEDS ORDERED: MAGNESIUM CITRATE 300 ML BOTTLE PO PRN (14:58)
[2020-01-06] MEDS ORDERED: ONDANSETRON *ODT* 4 MG TABLET SL ONE (14:58)
[2020-01-06 15:30] VITALS: BMI 22.8
--- NOTE | 2020-01-06 15:57 | EKG ---
Test Reason : Blood Pressure : / mmHG Vent. Rate : 066 BPM Atrial Rate : 066 BPM P-R Int : 162 ms QRS Dur : 084 ms QT Int : 416 ms P-R-T Axes : 065 065 069 degrees QTc Int : 436 ms NORMAL SINUS RHYTHM NORMAL ECG WHEN COMPARED WITH ECG OF 31-DEC-2018 18:56, NO SIGNIFICANT CHANGE WAS FOUND Confirmed by MD Walsh Edward ([id number]) on 01/06/2020 3:57:15 PM Referred By: Confirmed By:Cale Walsh MD
[2020-01-06] MEDS: NICOTINE 21 MG/24 HOURS TOPICAL PATCH TD SCH (17:57)
[2020-01-06] MEDS: PRENATAL VITAMINS W/ FOLIC ACID TABLET (FP) PO SCH (17:57)
[2020-01-06] MEDS: hydrOXYzine PAMOATE 25 MG CAPSULE (FP) PO SCH ×2 (17:58→22:27)
[2020-01-06] MEDS: chlordiazePOXIDE HCL 25 MG CAPSULE PO SCH ×2 (17:58→22:27)
[2020-01-06 18:07] LABS: HEMATOCRIT 43.4 % (35.4-49); HEMOGLOBIN 14.4 GM/dL (11.7-16.9); MCH 32.4 pg (25.7-33.7); MCHC 33.2 g/dl (32.0-35.9); MEAN CELL VOLUME 97.6 fl (80-96); MEAN PLT VOLUME 7.7 fl (7.5-11.1); PLATELET COUNT 288 K/MM3 (134-434); RBC 4.45 M/mm3 (4.00-5.60); RDW 13.2 % (11.9-15.9); WHITE BLOOD COUNT 6.9 K/mm3 (4.0-10.0)
[2020-01-06 18:12] LABS: BILIRUBIN,TOTAL 0.8 mg/dL (0.2-1); CALCIUM 8.6 mg/dL (8.5-10.1); CREATININE 1.2 mg/dL (0.55-1.3); POTASSIUM 3.6 mmol/L (3.5-5.1); TOT PROT 7.3 g/dl (6.4-8.2)
[2020-01-06] MEDS: MELATONIN 5 MG TABLETS PO SCH (22:27)
[2020-01-06] MEDS: THIAMINE HCL 100 MG TABLET (FP) PO SCH (22:27)
[2020-01-07] MEDS: hydrOXYzine PAMOATE 25 MG CAPSULE (FP) PO SCH ×5 (05:24→21:59)
[2020-01-07] MEDS: chlordiazePOXIDE HCL 25 MG CAPSULE PO SCH ×4 (05:25→21:59)
[2020-01-07] MEDS: PRENATAL VITAMINS W/ FOLIC ACID TABLET (FP) PO SCH (10:10)
[2020-01-07] MEDS: NICOTINE 21 MG/24 HOURS TOPICAL PATCH TD SCH (10:11)
--- NOTE | 2020-01-07 11:25 | PN ---
[facility] CIWA - CIWA Score Nausea/Vomitin-Mild Nausea/No Vomiting Muscle Tremors: 2 Anxiety: 2 Agitation: 2 Paroxysmal Sweats: No Perspiration Orientation: 0-Oriented Tacttile Disturbances: 1-Very Mild Itch/Numbness Auditory Disturbances: 0-None Visual Disturbances: 0-None Headache: 2-Mild CIWA-Ar Total Score: 10 S Progress Note (SOAP) Subjective: alert,irritable,anxious,interrupted sleep,tremor,pain in the body Objective: 01/07/20 11:21 Vital Signs Temperature 97.7 F 01/07/20 08:39 Pulse Rate 65 01/07/20 08:39 Respiratory Rate 18 01/07/20 08:39 Blood Pressure 94/55 L 01/07/20 08:39 O2 Sat by Pulse Oximetry (%) 97 01/07/20 06:11 01/07/20 11:23 Laboratory Last Values WBC 6.9 K/mm3 (4.0-10.0) 01/06/20 15:00 RBC 4.45 M/mm3 (4.00-5.60) 01/06/20 15:00 Hgb 14.4 GM/dL (11.7-16.9) 01/06/20 15:00 Hct 43.4 % (35.4-49) 01/06/20 15:00 MCV 97.6 fl (80-96) H 01/06/20 15:00 MCH 32.4 pg (25.7-33.7) 01/06/20 15:00 MCHC 33.2 g/dl (32.0-35.9) 01/06/20 15:00 RDW 13.2 % (11.9-15.9) 01/06/20 15:00 Plt Count 288 K/MM3 (134-434) 01/06/20 15:00 MPV 7.7 fl (7.5-11.1) 01/06/20 15:00 Sodium 142 mmol/L (136-145) 01/06/20 15:00 Potassium 3.6 mmol/L (3.5-5.1) 01/06/20 15:00 Chloride 109 mmol/L (98-107) H 01/06/20 15:00 Carbon Dioxide 25 mmol/L (21-32) 01/06/20 15:00 Anion Gap 8 MMOL/L (8-16) 01/06/20 15:00 BUN 21.0 mg/dL (7-18) H 01/06/20 15:00 Creatinine 1.2 mg/dL (0.55-1.3) 01/06/20 15:00 Est GFR (CKD-EPI)AfAm 77.88 01/06/20 15:00 Est GFR (CKD-EPI)NonAf 67.19 01/06/20 15:00 Random Glucose 101 mg/dL (74-106) 01/06/20 15:00 Calcium 8.6 mg/dL (8.5-10.1) 01/06/20 15:00 Total Bilirubin 0.8 mg/dL (0.2-1) 01/06/20 15:00 AST 21 U/L (15-37) 01/06/20 15:00 ALT 18 U/L (13-61) 01/06/20 15:00 Alkaline Phosphatase 62 U/L (45-117) 01/06/20 15:00 Total Protein 7.3 g/dl (6.4-8.2) 01/06/20 15:00 Albumin 4.0 g/dl (3.4-5.0) 01/06/20 15:00 Syphilis Serology Non-reactive (NONREACTIVE) 01/06/20 15:00 Assessment: 01/07/20 11:25 withdrawal symptom Plan: continue detox librium regimen
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
[2020-01-07] MEDS ORDERED: MASKS NR ONE (16:38)
[2020-01-07] MEDS: THIAMINE HCL 100 MG TABLET (FP) PO SCH (21:59)
[2020-01-07] MEDS ORDERED: GABAPENTIN 100 MG CAPSULE PO SCH (22:00)
[2020-01-07] MEDS ORDERED: QUEtiapine FUMARATE 400 MG TABLET PO SCH ×2 (22:00)
[2020-01-07] MEDS ORDERED: QUEtiapine FUMARATE 200 MG TABLET PO SCH (22:00)
[2020-01-07] MEDS: MELATONIN 5 MG TABLETS PO SCH (22:03)
[2020-01-08] MEDS: chlordiazePOXIDE HCL 25 MG CAPSULE PO SCH ×4 (06:34→22:07)
[2020-01-08] MEDS: hydrOXYzine PAMOATE 25 MG CAPSULE (FP) PO SCH ×5 (06:34→22:09)
--- NOTE | 2020-01-08 10:34 | PN ---
S CIWA - CIWA Score Nausea/Vomitin Muscle Tremors: 2 Anxiety: 2 Agitation: 2 Paroxysmal Sweats: No Perspiration Orientation: 0-Oriented Tacttile Disturbances: 1-Very Mild Itch/Numbness Auditory Disturbances: 0-None Visual Disturbances: 0-None Headache: 1-Very Mild CIWA-Ar Total Score: 10 S Progress Note (SOAP) Subjective: alert,irritable,anxious,interrupted sleep,tremor,nausea Objective: 01/08/20 10:33 Vital Signs Temperature 97.3 F L 01/08/20 08:36 Pulse Rate 65 01/08/20 08:36 Respiratory Rate 16 01/08/20 08:36 Blood Pressure 100/65 01/08/20 08:36 O2 Sat by Pulse Oximetry (%) 98 01/08/20 05:19 Laboratory Last Values WBC 6.9 K/mm3 (4.0-10.0) 01/06/20 15:00 RBC 4.45 M/mm3 (4.00-5.60) 01/06/20 15:00 Hgb 14.4 GM/dL (11.7-16.9) 01/06/20 15:00 Hct 43.4 % (35.4-49) 01/06/20 15:00 MCV 97.6 fl (80-96) H 01/06/20 15:00 MCH 32.4 pg (25.7-33.7) 01/06/20 15:00 MCHC 33.2 g/dl (32.0-35.9) 01/06/20 15:00 RDW 13.2 % (11.9-15.9) 01/06/20 15:00 Plt Count 288 K/MM3 (134-434) 01/06/20 15:00 MPV 7.7 fl (7.5-11.1) 01/06/20 15:00 Sodium 142 mmol/L (136-145) 01/06/20 15:00 Potassium 3.6 mmol/L (3.5-5.1) 01/06/20 15:00 Chloride 109 mmol/L (98-107) H 01/06/20 15:00 Carbon Dioxide 25 mmol/L (21-32) 01/06/20 15:00 Anion Gap 8 MMOL/L (8-16) 01/06/20 15:00 BUN 21.0 mg/dL (7-18) H 01/06/20 15:00 Creatinine 1.2 mg/dL (0.55-1.3) 01/06/20 15:00 Est GFR (CKD-EPI)AfAm 77.88 01/06/20 15:00 Est GFR (CKD-EPI)NonAf 67.19 01/06/20 15:00 Random Glucose 101 mg/dL (74-106) 01/06/20 15:00 Calcium 8.6 mg/dL (8.5-10.1) 01/06/20 15:00 Total Bilirubin 0.8 mg/dL (0.2-1) 01/06/20 15:00 AST 21 U/L (15-37) 01/06/20 15:00 ALT 18 U/L (13-61) 01/06/20 15:00 Alkaline Phosphatase 62 U/L (45-117) 01/06/20 15:00 Total Protein 7.3 g/dl (6.4-8.2) 01/06/20 15:00 Albumin 4.0 g/dl (3.4-5.0) 01/06/20 15:00 Syphilis Serology Non-reactive (NONREACTIVE) 01/06/20 15:00 COVID-19 (ANA) Not detected (Not Detected) 01/06/20 15:00 HIV Ag/Ab Combo Qual Negative (NEGATIVE) 01/07/20 08:00 Assessment: 01/08/20 10:34 withdrawal symptom Plan: continue detox librium regimen,encourage oral fluid
[2020-01-08] MEDS: PRENATAL VITAMINS W/ FOLIC ACID TABLET (FP) PO SCH (10:35)
[2020-01-08] MEDS: NICOTINE 21 MG/24 HOURS TOPICAL PATCH TD SCH (10:35)
--- NOTE | 2020-01-08 12:14 | PN ---
[facility] Progress Note Note: Psychiatric nurse practitioner note: No complaints of oversedation or dizziness from patient. Will d/c seroquel 200mg + gabapentin 200mgHS. Will order Seroquel 300mg HS + Gabapentin 300mg HS. Verbal consent given.
[2020-01-08] MEDS: THIAMINE HCL 100 MG TABLET (FP) PO SCH (22:07)
[2020-01-08] MEDS ORDERED: QUEtiapine FUMARATE 100 MG TABLET (FP) ONE (22:08)
[2020-01-08] MEDS: QUEtiapine FUMARATE 300 MG TABLET PO SCH (22:08)
[2020-01-08] MEDS: GABAPENTIN 300 MG CAPSULE PO SCH (22:08)
[2020-01-08] MEDS: MELATONIN 5 MG TABLETS PO SCH (22:10)
[2020-01-09] MEDS ORDERED: chlordiazePOXIDE HCL 10 MG CAPSULE PO PRN
[2020-01-09] MEDS: hydrOXYzine PAMOATE 25 MG CAPSULE (FP) PO SCH ×5 (05:19→22:24)
[2020-01-09] MEDS: chlordiazePOXIDE HCL 10 MG CAPSULE PO SCH ×4 (05:19→22:24)
[2020-01-09] MEDS: NICOTINE 21 MG/24 HOURS TOPICAL PATCH TD SCH (10:16)
[2020-01-09] MEDS: PRENATAL VITAMINS W/ FOLIC ACID TABLET (FP) PO SCH (10:16)
--- NOTE | 2020-01-09 10:50 | PN ---
S CIWA - CIWA Score Nausea/Vomitin-No Nausea/No Vomiting Muscle Tremors: 2 Anxiety: 3 Agitation: 0-Normal Activity Paroxysmal Sweats: 3 Orientation: 0-Oriented Tacttile Disturbances: 0-None Auditory Disturbances: 0-None Visual Disturbances: 0-None Headache: 0-None Present CIWA-Ar Total Score: 8 BHS Progress Note (SOAP) Subjective: c/o shakes, sweats, and anxiety. Objective: 01/09/20 10:49 Vital Signs 01/09/20 01/09/20 01/09/20 03:30 06:11 08:38 Temperature 98.4 F 96.7 F L Pulse Rate 62 68 Respiratory 18 18 18 Rate Blood Pressure 109/68 90/57 L O2 Sat by Pulse 97 Oximetry (%) Laboratory Last Values WBC 6.9 K/mm3 (4.0-10.0) 01/06/20 15:00 RBC 4.45 M/mm3 (4.00-5.60) 01/06/20 15:00 Hgb 14.4 GM/dL (11.7-16.9) 01/06/20 15:00 Hct 43.4 % (35.4-49) 01/06/20 15:00 MCV 97.6 fl (80-96) H 01/06/20 15:00 MCH 32.4 pg (25.7-33.7) 01/06/20 15:00 MCHC 33.2 g/dl (32.0-35.9) 01/06/20 15:00 RDW 13.2 % (11.9-15.9) 01/06/20 15:00 Plt Count 288 K/MM3 (134-434) 01/06/20 15:00 MPV 7.7 fl (7.5-11.1) 01/06/20 15:00 Sodium 142 mmol/L (136-145) 01/06/20 15:00 Potassium 3.6 mmol/L (3.5-5.1) 01/06/20 15:00 Chloride 109 mmol/L (98-107) H 01/06/20 15:00 Carbon Dioxide 25 mmol/L (21-32) 01/06/20 15:00 Anion Gap 8 MMOL/L (8-16) 01/06/20 15:00 BUN 21.0 mg/dL (7-18) H 01/06/20 15:00 Creatinine 1.2 mg/dL (0.55-1.3) 01/06/20 15:00 Est GFR (CKD-EPI)AfAm 77.88 01/06/20 15:00 Est GFR (CKD-EPI)NonAf 67.19 01/06/20 15:00 Random Glucose 101 mg/dL (74-106) 01/06/20 15:00 Calcium 8.6 mg/dL (8.5-10.1) 01/06/20 15:00 Total Bilirubin 0.8 mg/dL (0.2-1) 01/06/20 15:00 AST 21 U/L (15-37) 01/06/20 15:00 ALT 18 U/L (13-61) 01/06/20 15:00 Alkaline Phosphatase 62 U/L (45-117) 01/06/20 15:00 Total Protein 7.3 g/dl (6.4-8.2) 01/06/20 15:00 Albumin 4.0 g/dl (3.4-5.0) 01/06/20 15:00 Syphilis Serology Non-reactive (NONREACTIVE) 01/06/20 15:00 COVID-19 (ANA) Not detected (Not Detected) 01/06/20 15:00 HIV Ag/Ab Combo Qual Negative (NEGATIVE) 01/07/20 08:00 Labs noted. Assessment: 01/09/20 10:49 AOX3, in no acute respiratory distress. Full ROM, ambulating in the unit. Withdrawal symptoms. Plan: continue detox.
[2020-01-09] MEDS: QUEtiapine FUMARATE 300 MG TABLET PO SCH (22:24)
[2020-01-09] MEDS: THIAMINE HCL 100 MG TABLET (FP) PO SCH (22:24)
[2020-01-09] MEDS: GABAPENTIN 300 MG CAPSULE PO SCH (22:24)
[2020-01-09] MEDS: MELATONIN 5 MG TABLETS PO SCH (22:24)
[2020-01-10] MEDS ORDERED: chlordiazePOXIDE HCL 10 MG CAPSULE PO SCH (05:00)
[2020-01-10] MEDS: hydrOXYzine PAMOATE 25 MG CAPSULE (FP) PO SCH (05:26)
[2020-01-10 09:07] VITALS: BP 111/64; PULSE 72; TEMP 96.3
--- NOTE | 2020-01-10 09:28 | DS ---
[facility] Detox Discharge Summary Admission Date: 01/06/20 Discharge Date: 01/10/20 - History Present History: Alcohol Dependence Additional Comments: 54 years old male admitted on 01/06/20 for alcohol withdrawal sx management treated with librium detox regiment seen by psychiatrist resume seroquel and gabapentin mr tejeda prefers to leave the detox today to home and prepares for [facility] facility for alcohol recovery alert oriented x 2 ambulating with steady gaits cardiac s1s2 regular rate rhythm respiratory clear lung sounds bilaterally on auscultation extremities full range of motion Pertinent Past History: time for discharge 45 minutes discussing the benefits of librium regimen completion mr tejeda [facility] - Physical Exam Results Vital Signs: Vital Signs Temperature 96.3 F L 01/10/20 08:35 Pulse Rate 72 01/10/20 08:35 Respiratory Rate 18 01/10/20 08:35 Blood Pressure 111/64 01/10/20 08:35 O2 Sat by Pulse Oximetry (%) 99 01/10/20 06:19 Pertinent Admission Physical Exam Findings: alcohol withdrawal Laboratory Tests 01/06/20 01/06/20 01/06/20 15:00 15:00 15:00 WBC 6.9 RBC 4.45 Hgb 14.4 Hct 43.4 MCV 97.6 H MCH 32.4 MCHC 33.2 RDW 13.2 Plt Count 288 MPV 7.7 Sodium 142 Potassium 3.6 Chloride 109 H Carbon Dioxide 25 Anion Gap 8 BUN 21.0 H Creatinine 1.2 Est GFR (CKD-EPI)AfAm 77.88 Est GFR (CKD-EPI)NonAf 67.19 Random Glucose 101 Calcium 8.6 Total Bilirubin 0.8 AST 21 ALT 18 Alkaline Phosphatase 62 Total Protein 7.3 Albumin 4.0 Syphilis Serology Non-reactive COVID-19 (ANA) HIV Ag/Ab Combo Qual 01/06/20 01/07/20 15:00 08:00 WBC RBC Hgb Hct MCV MCH MCHC RDW Plt Count MPV Sodium Potassium Chloride Carbon Dioxide Anion Gap BUN Creatinine Est GFR (CKD-EPI)AfAm Est GFR (CKD-EPI)NonAf Random Glucose Calcium Total Bilirubin AST ALT Alkaline Phosphatase Total Protein Albumin Syphilis Serology COVID-19 (ANA) Not detected HIV Ag/Ab Combo Qual Negative Vital Signs - 24 hr 0601/09/20 01/09/20 12:47 13:39 16:50 Temperature 96.8 F L 97.1 F L Pulse Rate 66 70 Respiratory 16 16 Rate Blood Pressure 97/63 100/74 O2 Sat by Pulse 99 Oximetry (%) 01/09/20 01/10/20 01/10/20 22:30 00:30 03:30 Temperature 97.5 F L Pulse Rate 65 Respiratory 18 18 18 Rate Blood Pressure 117/83 O2 Sat by Pulse Oximetry (%) 01/10/20 01/10/20 06:19 08:35 Temperature 97.1 F L 96.3 F L Pulse Rate 61 72 Respiratory 18 18 Rate Blood Pressure 104/76 111/64 O2 Sat by Pulse 99 Oximetry (%) - Treatment Hospital Course: Detox Protocol Followed, Detoxed Safely, Responded well, Discharged Condition Good, Rehab Referral Accepted Patient has Accepted a Rehab Referral to: [facility] - Medication Discharge Medications: Ambulatory Orders Gabapentin 400 mg PO HS 01/06/20 Quetiapine Fumarate [Seroquel -] 400 mg PO HS 01/06/20 - Diagnosis (1) Alcohol dependence with uncomplicated withdrawal Status: Acute (2) Nicotine dependence Status: Acute Qualifiers: Nicotine product type: cigarettes Substance use status: in withdrawal Qualified Code(s): F17.213 - Nicotine dependence, cigarettes, with withdrawal (3) Substance induced mood disorder Status: Suspected - AMA Did Patient Leave Against Medical Advice: No CIWA Score - CIWA Score Nausea/Vomitin-No Nausea/No Vomiting Muscle Tremors: 1-None Visible, but [place] Anxiety: 2 Agitation: 0-Normal Activity Paroxysmal Sweats: 1-Minimal Palms Moist Orientation: 0-Oriented Tacttile Disturbances: 0-None Auditory Disturbances: 0-None Visual Disturbances: 0-None Headache: 0-None Present CIWA-Ar Total Score: 4
[2020-01-11] MEDS ORDERED: chlordiazePOXIDE HCL 10 MG CAPSULE PO ONE (05:00)
== END 2020-01-10 09:16 | disposition home or self-care (01) | DRG 774 ==
LOC: YASAS 12:43 → Y3N 15:31
PROVIDERS: ADMIT Allergy & Immunology; ATTEND Allergy & Immunology
PROC: HZ2ZZZZ Detoxification Services for Substance Abuse Treatment (ICD-10-PCS; principal; 2020-01-06)
DX: F10.230 Alcohol dependence with withdrawal, uncomplicated (principal); F14.20 Cocaine dependence, uncomplicated; F17.213 Nicotine dependence, cigarettes, with withdrawal; F19.24 Other psychoactive substance dependence with psychoactive substance-induced mood disorder; F31.9 Bipolar disorder, unspecified; Z88.0 Allergy status to penicillin; Z91.013 Allergy to seafood; Z59.0 Homelessness
CPT/HCPCS: 36415; 80053; 85027; 86780; 87389; 93005; 93010; Q0162; U0003

== ENCOUNTER 2020-03-15 14:37 | Inpatient (IN) | payer OTHER ==
--- NOTE | 2020-03-15 15:06 | BHS.RME ---
Substance Use & Tx History - Substance Use History Alcohol Substance amount: 4 pints Vodka Frequency of use: Daily Substance route: Oral Date of Last Use: 03/15/20 Cocaine-Crack Substance amount: $80 Frequency of use: Daily Substance route: Smoking Date of Last Use: 03/14/20 Nicotine Substance amount: one pack Frequency of use: Daily Substance route: Smoking Date of Last Use: 03/15/20 Physical/Psych/Mental Status - Behavior General Behavior: Increased activity (restlessness, agitation) Eye Contact: Normal - Cooperativeness Cooperativeness: Cooperative - Thinking Thought Processes: Tight Thought content: Future oriented - Physical Health Problems Is patient presently having any pain?: No Does patient presently have any injuries (include location): No Does patient currently have a fever: No CIWA Nausea/Vomitin Muscle Tremors: 2 Anxiety: 3 Agitation: 0-Normal Activity Paroxysmal Sweats: 3 Orientation: 0-Oriented Tacttile Disturbances: 0-None Auditory Disturbances: 0-None Visual Disturbances: 0-None Headache: 0-None Present CIWA-Ar Total Score: 11
[2020-03-15 15:45] VITALS: BMI 22.8
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
[2020-03-15] MEDS ORDERED: IBUPROFEN 400 MG TABLET (FP) PO PRN (16:21)
[2020-03-15] MEDS ORDERED: ONDANSETRON *ODT* 4 MG TABLET SL PRN (16:21)
[2020-03-15] MEDS ORDERED: ACETAMINOPHEN 325 MG TABLET (FP) PO PRN ×2 (16:21)
[2020-03-15] MEDS ORDERED: MAG HYDROX/AL HYDROX/SIMETH 30 ML UNIT-DOSE CUP PO PRN (16:21)
[2020-03-15] MEDS ORDERED: MAGNESIUM HYDROX 2400MG/30ML ORAL SUSPENSION 30 ML CUP PO PRN (16:21)
[2020-03-15] MEDS ORDERED: NICOTINE POLACRILEX 2 MG GUM BUC PRN (16:21)
[2020-03-15] MEDS ORDERED: chlordiazePOXIDE HCL 25 MG CAPSULE PO PRN (16:21)
[2020-03-15] MEDS ORDERED: BISMUTH SUBSALICYLATE 524 MG/30 ML UD PO PRN (16:21)
[2020-03-15] MEDS ORDERED: MAGNESIUM CITRATE 300 ML BOTTLE PO PRN (16:21)
[2020-03-15] MEDS ORDERED: MENTHOL/PHENOL 1 EACH UD MM PRN (16:21)
[2020-03-15] MEDS ORDERED: NICOTINE 7 MG/24 HOURS TOPICAL PATCH TD SCH (16:30)
[2020-03-15] MEDS: chlordiazePOXIDE HCL 25 MG CAPSULE PO SCH ×2 (18:06→22:28)
[2020-03-15] MEDS: NICOTINE 21 MG/24 HOURS TOPICAL PATCH TD SCH (18:06)
[2020-03-15] MEDS: hydrOXYzine PAMOATE 25 MG CAPSULE (FP) PO SCH ×2 (18:06→22:29)
[2020-03-15] MEDS: PRENATAL VITAMINS W/ FOLIC ACID TABLET (FP) PO SCH (18:06)
[2020-03-15] MEDS: GABAPENTIN 400 MG CAPSULE PO SCH (22:28)
[2020-03-15] MEDS: THIAMINE HCL 100 MG TABLET (FP) PO SCH (22:29)
[2020-03-15] MEDS: MELATONIN 5 MG TABLETS PO SCH (22:29)
[2020-03-16] MEDS: hydrOXYzine PAMOATE 25 MG CAPSULE (FP) PO SCH ×2 (07:17→10:57)
[2020-03-16] MEDS: chlordiazePOXIDE HCL 25 MG CAPSULE PO SCH ×4 (07:17→22:40)
--- NOTE | 2020-03-16 08:11 | PN ---
Teaching Attending Note Name of Resident: Gwen Palm ATTENDING PHYSICIAN STATEMENT I saw and evaluated the patient. I reviewed the resident's note and discussed the case with the resident. I agree with the resident's findings and plan as documented. SUBJECTIVE: OBJECTIVE: ASSESSMENT AND PLAN: Agree with resident's findings and plan for detox.
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
[2020-03-16] MEDS: NICOTINE 21 MG/24 HOURS TOPICAL PATCH TD SCH (10:57)
[2020-03-16] MEDS: PRENATAL VITAMINS W/ FOLIC ACID TABLET (FP) PO SCH (10:57)
--- NOTE | 2020-03-16 11:03 | PN ---
S CIWA - CIWA Score Nausea/Vomitin Muscle Tremors: 3 Anxiety: 3 Agitation: 3 Paroxysmal Sweats: 1-Minimal Palms Moist Orientation: 0-Oriented Tacttile Disturbances: 1-Very Mild Itch/Numbness Auditory Disturbances: 0-None Visual Disturbances: 0-None Headache: 2-Mild CIWA-Ar Total Score: 15 BHS Progress Note (SOAP) Subjective: alert,irritable,anxious,interrupted sleep,tremor,pain in the body and back, Objective: 03/16/20 11:03 Vital Signs Temperature 97.5 F L 03/16/20 09:15 Pulse Rate 63 03/16/20 09:15 Respiratory Rate 18 03/16/20 09:15 Blood Pressure 100/64 03/16/20 09:15 O2 Sat by Pulse Oximetry (%) 100 03/16/20 09:15 03/16/20 11:03 labs pending Assessment: 03/16/20 11:04 withdrawal symptom Plan: continue detox librium regimen,Dr Olivas consultation appreciated
[2020-03-16 11:08] LABS: HEMATOCRIT 38.7 % (35.4-49); HEMOGLOBIN 12.9 GM/dL (11.7-16.9); MCH 33.2 pg (25.7-33.7); MCHC 33.3 g/dl (32.0-35.9); MEAN CELL VOLUME 99.8 fl (80-96); MEAN PLT VOLUME 7.5 fl (7.5-11.1); PLATELET COUNT 260 K/MM3 (134-434); RBC 3.87 M/mm3 (4.00-5.60); RDW 13.5 % (11.9-15.9); WHITE BLOOD COUNT 3.9 K/mm3 (4.0-10.0)
[2020-03-16 11:24] LABS: BILIRUBIN,TOTAL 0.6 mg/dL (0.2-1); CALCIUM 8.2 mg/dL (8.5-10.1); CREATININE 0.9 mg/dL (0.55-1.3); POTASSIUM 4.2 mmol/L (3.5-5.1)
[2020-03-16 11:25] LABS: TOT PROT 5.5 g/dl (6.4-8.2)
[2020-03-16] MEDS ORDERED: hydrOXYzine PAMOATE 25 MG CAPSULE (FP) PO PRN (11:51)
[2020-03-16] MEDS: MELATONIN 5 MG TABLETS PO SCH (22:40)
[2020-03-16] MEDS: QUEtiapine FUMARATE 400 MG TABLET PO SCH (22:40)
[2020-03-16] MEDS: GABAPENTIN 400 MG CAPSULE PO SCH (22:40)
[2020-03-16] MEDS: THIAMINE HCL 100 MG TABLET (FP) PO SCH (22:40)
[2020-03-17] MEDS: chlordiazePOXIDE HCL 25 MG CAPSULE PO SCH ×2 (07:24→10:34)
[2020-03-17] MEDS: NICOTINE 21 MG/24 HOURS TOPICAL PATCH TD SCH (10:33)
[2020-03-17] MEDS: PRENATAL VITAMINS W/ FOLIC ACID TABLET (FP) PO SCH (10:59)
--- NOTE | 2020-03-17 11:09 | PN ---
S CIWA - CIWA Score Nausea/Vomitin-No Nausea/No Vomiting Muscle Tremors: 2 Anxiety: 1-Mildly Anxious Agitation: 1-Slight > Activity Paroxysmal Sweats: 2 Orientation: 0-Oriented Tacttile Disturbances: 0-None Auditory Disturbances: 0-None Visual Disturbances: 0-None Headache: 0-None Present CIWA-Ar Total Score: 6 BHS Progress Note (SOAP) Subjective: tired Objective: 03/17/20 11:07 Vital Signs Temperature 98.9 F 03/17/20 08:49 Pulse Rate 56 L 03/17/20 09:38 Respiratory Rate 19 03/17/20 08:49 Blood Pressure 84/55 L 03/17/20 09:38 O2 Sat by Pulse Oximetry (%) 96 03/17/20 08:49 Laboratory Tests 03/15/20 03/16/20 03/16/20 16:10 08:10 08:10 WBC 3.9 L RBC 3.87 L Hgb 12.9 Hct 38.7 MCV 99.8 H MCH 33.2 MCHC 33.3 RDW 13.5 Plt Count 260 MPV 7.5 Sodium Potassium Chloride Carbon Dioxide Anion Gap BUN Creatinine Est GFR (CKD-EPI)AfAm Est GFR (CKD-EPI)NonAf Random Glucose Calcium Total Bilirubin AST ALT Alkaline Phosphatase Total Protein Albumin Syphilis Serology Non-reactive COVID-19 (ANA) Not detected 03/16/20 08:10 WBC RBC Hgb Hct MCV MCH MCHC RDW Plt Count MPV Sodium 141 Potassium 4.2 Chloride 108 H Carbon Dioxide 29 Anion Gap 4 L BUN 13.0 Creatinine 0.9 Est GFR (CKD-EPI)AfAm 109.50 Est GFR (CKD-EPI)NonAf 94.48 Random Glucose 80 Calcium 8.2 L Total Bilirubin 0.6 AST 21 ALT 21 Alkaline Phosphatase 52 Total Protein 5.5 L Albumin 3.0 L Syphilis Serology COVID-19 (ANA) pt awakes to name but appears too lethargic and tired looking no acute distress lying in bed Assessment: 03/17/20 11:08 no s/s of withdrawals noted because pt is too sedated Plan: neurontin d/c visitiril d/c melatonin d/c librium decreased to 15mg today encourage fluids when more awake
[2020-03-17] MEDS: chlordiazePOXIDE 5 MG CAPSULE PO SCH ×3 (12:15→23:17)
[2020-03-17] MEDS: QUEtiapine FUMARATE 400 MG TABLET PO SCH (23:17)
[2020-03-17] MEDS: THIAMINE HCL 100 MG TABLET (FP) PO SCH (23:17)
[2020-03-18] MEDS ORDERED: chlordiazePOXIDE HCL 10 MG CAPSULE PO PRN
[2020-03-18] MEDS ORDERED: chlordiazePOXIDE HCL 10 MG CAPSULE PO SCH (05:00)
[2020-03-18] MEDS: chlordiazePOXIDE 5 MG CAPSULE PO SCH (05:56)
[2020-03-18] MEDS: NICOTINE 21 MG/24 HOURS TOPICAL PATCH TD SCH (10:45)
[2020-03-18] MEDS: PRENATAL VITAMINS W/ FOLIC ACID TABLET (FP) PO SCH (10:45)
[2020-03-18] MEDS: METHOCARBAMOL 500 MG TABLET PO PRN ×2 (10:47→17:48)
[2020-03-18] MEDS: chlordiazePOXIDE HCL 10 MG CAPSULE PO SCH ×3 (10:49→23:50)
--- NOTE | 2020-03-18 11:25 | PN ---
[facility] CIWA - CIWA Score Nausea/Vomitin-Mild Nausea/No Vomiting Muscle Tremors: 2 Anxiety: 2 Agitation: 2 Paroxysmal Sweats: No Perspiration Orientation: 0-Oriented Tacttile Disturbances: 1-Very Mild Itch/Numbness Auditory Disturbances: 0-None Visual Disturbances: 0-None Headache: 1-Very Mild CIWA-Ar Total Score: 9 S Progress Note (SOAP) Subjective: alert,irritable,anxious,interrupted sleep,pain in the body Objective: 03/18/20 11:34 Vital Signs Temperature 98 F 03/18/20 05:59 Pulse Rate 69 03/18/20 05:59 Respiratory Rate 16 03/18/20 05:59 Blood Pressure 95/63 03/18/20 05:59 O2 Sat by Pulse Oximetry (%) 95 03/18/20 05:59 03/18/20 11:36 Laboratory Last Values WBC 3.9 K/mm3 (4.0-10.0) L 03/16/20 08:10 RBC 3.87 M/mm3 (4.00-5.60) L 03/16/20 08:10 Hgb 12.9 GM/dL (11.7-16.9) 03/16/20 08:10 Hct 38.7 % (35.4-49) 03/16/20 08:10 MCV 99.8 fl (80-96) H 03/16/20 08:10 MCH 33.2 pg (25.7-33.7) 03/16/20 08:10 MCHC 33.3 g/dl (32.0-35.9) 03/16/20 08:10 RDW 13.5 % (11.9-15.9) 03/16/20 08:10 Plt Count 260 K/MM3 (134-434) 03/16/20 08:10 MPV 7.5 fl (7.5-11.1) 03/16/20 08:10 Sodium 141 mmol/L (136-145) 03/16/20 08:10 Potassium 4.2 mmol/L (3.5-5.1) 03/16/20 08:10 Chloride 108 mmol/L (98-107) H 03/16/20 08:10 Carbon Dioxide 29 mmol/L (21-32) 03/16/20 08:10 Anion Gap 4 MMOL/L (8-16) L 03/16/20 08:10 BUN 13.0 mg/dL (7-18) 03/16/20 08:10 Creatinine 0.9 mg/dL (0.55-1.3) 03/16/20 08:10 Est GFR (CKD-EPI)AfAm 109.50 03/16/20 08:10 Est GFR (CKD-EPI)NonAf 94.48 03/16/20 08:10 Random Glucose 80 mg/dL (74-106) 03/16/20 08:10 Calcium 8.2 mg/dL (8.5-10.1) L 03/16/20 08:10 Total Bilirubin 0.6 mg/dL (0.2-1) 03/16/20 08:10 AST 21 U/L (15-37) 03/16/20 08:10 ALT 21 U/L (13-61) 03/16/20 08:10 Alkaline Phosphatase 52 U/L (45-117) 03/16/20 08:10 Total Protein 5.5 g/dl (6.4-8.2) L 03/16/20 08:10 Albumin 3.0 g/dl (3.4-5.0) L 03/16/20 08:10 Syphilis Serology Non-reactive (NONREACTIVE) 03/16/20 08:10 COVID-19 (ANA) Not detected (Not Detected) 03/15/20 16:10 Assessment: 03/18/20 11:38 withdrawal symptom Plan: continue detox librium regimen
[2020-03-18] MEDS: QUEtiapine FUMARATE 400 MG TABLET PO SCH (23:49)
[2020-03-18] MEDS: THIAMINE HCL 100 MG TABLET (FP) PO SCH (23:50)
[2020-03-19] MEDS ORDERED: chlordiazePOXIDE HCL 10 MG CAPSULE PO SCH ×2 (05:00→11:00)
[2020-03-19] MEDS: chlordiazePOXIDE HCL 10 MG CAPSULE PO SCH (06:54)
[2020-03-19 09:24] VITALS: TEMP 97.1
[2020-03-19] MEDS: NICOTINE 21 MG/24 HOURS TOPICAL PATCH TD SCH (10:34)
[2020-03-19] MEDS: PRENATAL VITAMINS W/ FOLIC ACID TABLET (FP) PO SCH (10:34)
--- NOTE | 2020-03-19 11:14 | DS ---
[facility] Detox Discharge Summary Admission Date: 03/15/20 Discharge Date: 03/19/20 - History Present History: Alcohol Dependence, Cocaine Dependence Additional Comments: Alert and oriented x 3, in no acute respiratory distress. Full ROM, ambulating in unit without assistance. Skin warm to touch, very dry with lesions. Patient for discharge tomorrow but wants go now, stable for discharge. Pertinent Past History: History of PPD+, alcohol, crack and nicotine dependence. - Physical Exam Results Vital Signs: Vital Signs Temperature 97.1 F L 03/19/20 08:50 Pulse Rate 66 03/19/20 08:50 Respiratory Rate 18 03/19/20 08:50 Blood Pressure 89/51 L 03/19/20 08:50 O2 Sat by Pulse Oximetry (%) 98 03/19/20 08:50 Vital Signs 03/19/20 03/19/20 05:36 08:50 Temperature 97.5 F L 97.1 F L Pulse Rate 61 66 Respiratory 16 18 Rate Blood Pressure 94/60 89/51 L O2 Sat by Pulse 98 98 Oximetry (%) Laboratory Last Values WBC 3.9 K/mm3 (4.0-10.0) L 03/16/20 08:10 RBC 3.87 M/mm3 (4.00-5.60) L 03/16/20 08:10 Hgb 12.9 GM/dL (11.7-16.9) 03/16/20 08:10 Hct 38.7 % (35.4-49) 03/16/20 08:10 MCV 99.8 fl (80-96) H 03/16/20 08:10 MCH 33.2 pg (25.7-33.7) 03/16/20 08:10 MCHC 33.3 g/dl (32.0-35.9) 03/16/20 08:10 RDW 13.5 % (11.9-15.9) 03/16/20 08:10 Plt Count 260 K/MM3 (134-434) 03/16/20 08:10 MPV 7.5 fl (7.5-11.1) 03/16/20 08:10 Sodium 141 mmol/L (136-145) 03/16/20 08:10 Potassium 4.2 mmol/L (3.5-5.1) 03/16/20 08:10 Chloride 108 mmol/L (98-107) H 03/16/20 08:10 Carbon Dioxide 29 mmol/L (21-32) 03/16/20 08:10 Anion Gap 4 MMOL/L (8-16) L 03/16/20 08:10 BUN 13.0 mg/dL (7-18) 03/16/20 08:10 Creatinine 0.9 mg/dL (0.55-1.3) 03/16/20 08:10 Est GFR (CKD-EPI)AfAm 109.50 03/16/20 08:10 Est GFR (CKD-EPI)NonAf 94.48 03/16/20 08:10 Random Glucose 80 mg/dL (74-106) 03/16/20 08:10 Calcium 8.2 mg/dL (8.5-10.1) L 03/16/20 08:10 Total Bilirubin 0.6 mg/dL (0.2-1) 03/16/20 08:10 AST 21 U/L (15-37) 03/16/20 08:10 ALT 21 U/L (13-61) 03/16/20 08:10 Alkaline Phosphatase 52 U/L (45-117) 03/16/20 08:10 Total Protein 5.5 g/dl (6.4-8.2) L 03/16/20 08:10 Albumin 3.0 g/dl (3.4-5.0) L 03/16/20 08:10 Syphilis Serology Non-reactive (NONREACTIVE) 03/16/20 08:10 COVID-19 (ANA) Not detected (Not Detected) 03/15/20 16:10 Labs noted. Pertinent Admission Physical Exam Findings: withdrawal symptoms. - Treatment Hospital Course: Detox Protocol Followed, Detoxed Safely, Responded well, Discharged Condition Good - Medication Discharge Medications: Ambulatory Orders Gabapentin 400 mg PO HS 01/06/20 Quetiapine Fumarate [Seroquel -] 400 mg PO HS 01/06/20 Melatonin 10 mg PO HS 03/15/20 - Diagnosis (1) Alcohol dependence with uncomplicated withdrawal Current Visit: Yes Status: Acute (2) PPD positive Current Visit: Yes Status: Chronic (3) Cocaine dependence Current Visit: No Status: Chronic Qualifiers: Substance use status: uncomplicated Qualified Code(s): F14.20 - Cocaine dependence, uncomplicated (4) Alcohol dependence Current Visit: No Status: Chronic Qualifiers: Substance use status: uncomplicated Qualified Code(s): F10.20 - Alcohol dependence, uncomplicated (5) Nicotine dependence Current Visit: No Status: Chronic Qualifiers: Nicotine product type: cigarettes Substance use status: in withdrawal Qualified Code(s): F17.213 - Nicotine dependence, cigarettes, with withdrawal - AMA Did Patient Leave Against Medical Advice: No CIWA Score - CIWA Score Nausea/Vomitin-No Nausea/No Vomiting Muscle Tremors: 2 Anxiety: 2 Agitation: 0-Normal Activity Paroxysmal Sweats: No Perspiration Orientation: 0-Oriented Tacttile Disturbances: 0-None Auditory Disturbances: 0-None Visual Disturbances: 0-None Headache: 1-Very Mild CIWA-Ar Total Score: 5
--- NOTE | 2020-03-19 12:24 | PN ---
[facility] Progress Note Note: Psychiatry Attending's note : Called by JUAN J Rondon for scripts. Patient is getting discharged today. Needs script for seroquel 400 mg po hs. Chart reviewed. Dr Olivas's note of 03/16/20 : appreciated. Medication is confirmed. Knitted Cloth Examiner met with patient. Mr Li is cognitively intact. Well groomed + cooperative. Ambulatory. Steady gait. No report of adverse effects from the medication. Patient insists on getting a script for seroquel. Clear historian. Goal-directed. Future-oriented. Side effects/benefits discussed with the patient. Consent (verbal) granted to MD. Stable mental status. Script for seroquel 400 mg/hs (orally) X 30 days. Sent electronically to [facility] ([phone]).
[2020-03-19 12:45] VITALS: BP 124/72; PULSE 96
[2020-03-20] MEDS ORDERED: chlordiazePOXIDE HCL 10 MG CAPSULE PO ONE (05:00)
== END 2020-03-19 12:45 | disposition home or self-care (01) | DRG 774 ==
LOC: YASAS 14:37 → Y6N 16:00
PROVIDERS: ADMIT Allergy & Immunology; ATTEND Allergy & Immunology
PROC: HZ2ZZZZ Detoxification Services for Substance Abuse Treatment (ICD-10-PCS; principal; 2020-03-15)
DX: F10.230 Alcohol dependence with withdrawal, uncomplicated (principal); F14.20 Cocaine dependence, uncomplicated; F17.210 Nicotine dependence, cigarettes, uncomplicated; F19.282 Other psychoactive substance dependence with psychoactive substance-induced sleep disorder; F19.24 Other psychoactive substance dependence with psychoactive substance-induced mood disorder; F31.9 Bipolar disorder, unspecified; R76.11 Nonspecific reaction to tuberculin skin test without active tuberculosis; Z62.810 Personal history of physical and sexual abuse in childhood; Z98.890 Other specified postprocedural states; Z88.0 Allergy status to penicillin; Z91.018 Allergy to other foods; Z56.0 Unemployment, unspecified
CPT/HCPCS: 36415; 80053; 85027; 86780; U0003

== ENCOUNTER 2020-05-25 08:56 | Inpatient (IN) | payer OTHER ==
[2020-05-25 09:45] VITALS: BMI 23.1
[2020-05-25] MEDS ORDERED: MAG HYDROX/AL HYDROX/SIMETH 30 ML UNIT-DOSE CUP PO PRN (10:20)
[2020-05-25] MEDS ORDERED: MENTHOL/PHENOL 1 EACH UD MM PRN (10:20)
[2020-05-25] MEDS ORDERED: MAGNESIUM HYDROX 2400MG/30ML ORAL SUSPENSION 30 ML CUP PO PRN (10:20)
[2020-05-25] MEDS ORDERED: BISMUTH SUBSALICYLATE 262 MG/15 ML BTL PO PRN (10:20)
[2020-05-25] MEDS ORDERED: ACETAMINOPHEN 325 MG TABLET (FP) PO PRN ×2 (10:20)
[2020-05-25] MEDS ORDERED: MAGNESIUM CITRATE 300 ML BOTTLE PO PRN (10:20)
[2020-05-25] MEDS ORDERED: chlordiazePOXIDE HCL 25 MG CAPSULE PO PRN (10:20)
[2020-05-25] MEDS ORDERED: NICOTINE POLACRILEX 2 MG GUM BUC PRN (10:20)
[2020-05-25] MEDS ORDERED: IBUPROFEN 400 MG TABLET (FP) PO PRN (10:20)
[2020-05-25] MEDS ORDERED: METHOCARBAMOL 500 MG TABLET PO PRN (10:20)
[2020-05-25] MEDS ORDERED: ONDANSETRON *ODT* 4 MG TABLET SL PRN (10:20)
[2020-05-25] MEDS: chlordiazePOXIDE HCL 25 MG CAPSULE PO SCH ×3 (11:34→22:47)
[2020-05-25] MEDS: NICOTINE 21 MG/24 HOURS TOPICAL PATCH TD SCH (11:34)
[2020-05-25 12:08] LABS: HEMATOCRIT 42.2 % (35.4-49); HEMOGLOBIN 14.3 GM/dL (11.7-16.9); MCHC 33.9 g/dl (32.0-35.9); MEAN PLT VOLUME 7.1 fl (7.5-11.1); PLATELET COUNT 330 K/MM3 (134-434); RBC 4.22 M/mm3 (4.00-5.60); RDW 13.3 % (11.9-15.9); WHITE BLOOD COUNT 7.6 K/mm3 (4.0-10.0)
[2020-05-25 12:17] LABS: POTASSIUM 3.8 mmol/L (3.5-5.1)
[2020-05-25 12:20] LABS: CALCIUM 9.3 mg/dL (8.5-10.1)
[2020-05-25 12:21] LABS: ALBUMIN 4.2 g/dl (3.4-5.0); BLOOD UREA NITROGEN 18.8 mg/dL (7-18)
[2020-05-25 12:24] LABS: CREATININE 1.1 mg/dL (0.55-1.3)
[2020-05-25 12:26] LABS: BILIRUBIN,TOTAL 1.4 mg/dL (0.2-1); TOT PROT 7.3 g/dl (6.4-8.2)
[2020-05-25] MEDS: hydrOXYzine PAMOATE 25 MG CAPSULE (FP) PO SCH ×3 (13:46→22:47)
[2020-05-25] MEDS ORDERED: GABAPENTIN 100 MG CAPSULE PO SCH (22:00)
[2020-05-25] MEDS ORDERED: QUEtiapine FUMARATE 200 MG TABLET PO SCH (22:00)
[2020-05-25] MEDS ORDERED: QUEtiapine FUMARATE 400 MG TABLET PO SCH (22:00)
[2020-05-25] MEDS: MELATONIN 5 MG TABLETS PO SCH (22:47)
[2020-05-25] MEDS: GABAPENTIN 100 MG CAPSULE PO SCH (22:47)
[2020-05-25] MEDS: THIAMINE HCL 100 MG TABLET (FP) PO SCH (22:47)
[2020-05-26] MEDS: chlordiazePOXIDE HCL 25 MG CAPSULE PO SCH ×4 (05:49→22:28)
[2020-05-26] MEDS: hydrOXYzine PAMOATE 25 MG CAPSULE (FP) PO SCH ×3 (05:49→14:11)
[2020-05-26] MEDS: PRENATAL VITAMINS W/ FOLIC ACID TABLET (FP) PO SCH (10:14)
[2020-05-26] MEDS: NICOTINE 21 MG/24 HOURS TOPICAL PATCH TD SCH (10:18)
[2020-05-26] MEDS ORDERED: LOPERAMIDE HCL 2 MG CAPSULE PO ONE (14:30)
[2020-05-26] MEDS: MELATONIN 5 MG TABLETS PO SCH (22:25)
[2020-05-26] MEDS: METHYL SALICYLATE/MENTHOL OINT 30 GM TUBE TP SCH (22:25)
[2020-05-26] MEDS: GABAPENTIN 100 MG CAPSULE PO SCH (22:27)
[2020-05-26] MEDS: THIAMINE HCL 100 MG TABLET (FP) PO SCH (22:28)
[2020-05-27] MEDS: chlordiazePOXIDE HCL 25 MG CAPSULE PO SCH ×4 (06:05→22:49)
[2020-05-27] MEDS: hydrOXYzine PAMOATE 50 MG CAPSULE (FP) PO PRN (10:31)
[2020-05-27] MEDS: METHYL SALICYLATE/MENTHOL OINT 30 GM TUBE TP SCH ×2 (10:31→23:25)
[2020-05-27] MEDS: NICOTINE 21 MG/24 HOURS TOPICAL PATCH TD SCH (10:32)
[2020-05-27] MEDS: PRENATAL VITAMINS W/ FOLIC ACID TABLET (FP) PO SCH (10:32)
[2020-05-27] MEDS: QUEtiapine FUMARATE 100 MG TABLET (FP) PO SCH (22:49)
[2020-05-27] MEDS: THIAMINE HCL 100 MG TABLET (FP) PO SCH (22:49)
[2020-05-27] MEDS: GABAPENTIN 100 MG CAPSULE PO SCH (22:49)
[2020-05-27] MEDS: MELATONIN 5 MG TABLETS PO SCH (23:25)
[2020-05-28] MEDS ORDERED: chlordiazePOXIDE HCL 10 MG CAPSULE PO PRN
[2020-05-28] MEDS: chlordiazePOXIDE HCL 10 MG CAPSULE PO SCH ×4 (05:52→22:33)
[2020-05-28] MEDS: PRENATAL VITAMINS W/ FOLIC ACID TABLET (FP) PO SCH (11:35)
[2020-05-28] MEDS: METHYL SALICYLATE/MENTHOL OINT 30 GM TUBE TP SCH ×2 (11:35→22:33)
[2020-05-28] MEDS: NICOTINE 21 MG/24 HOURS TOPICAL PATCH TD SCH (11:35)
[2020-05-28] MEDS: hydrOXYzine PAMOATE 50 MG CAPSULE (FP) PO PRN (19:04)
[2020-05-28] MEDS ORDERED: QUEtiapine FUMARATE 50 MG TABLET ONE (21:14)
[2020-05-28] MEDS: THIAMINE HCL 100 MG TABLET (FP) PO SCH (22:33)
[2020-05-28] MEDS: GABAPENTIN 100 MG CAPSULE PO SCH (22:34)
[2020-05-28] MEDS: QUEtiapine FUMARATE 100 MG TABLET (FP) PO SCH (22:34)
[2020-05-28] MEDS: MELATONIN 5 MG TABLETS PO SCH (22:34)
[2020-05-29] MEDS ORDERED: chlordiazePOXIDE HCL 10 MG CAPSULE PO SCH (05:00)
[2020-05-29 06:17] VITALS: BP 98/51; PULSE 63; TEMP 96.9
[2020-05-30] MEDS ORDERED: chlordiazePOXIDE HCL 10 MG CAPSULE PO ONE (05:00)
== END 2020-05-29 09:50 | disposition home or self-care (01) | DRG 774 ==
LOC: YASAS 08:56 → Y3N 10:10
PROVIDERS: ADMIT Allergy & Immunology; ATTEND Allergy & Immunology
PROC: HZ2ZZZZ Detoxification Services for Substance Abuse Treatment (ICD-10-PCS; principal; 2020-05-25)
DX: F10.230 Alcohol dependence with withdrawal, uncomplicated (principal); F14.20 Cocaine dependence, uncomplicated; F17.213 Nicotine dependence, cigarettes, with withdrawal; F19.282 Other psychoactive substance dependence with psychoactive substance-induced sleep disorder; F19.24 Other psychoactive substance dependence with psychoactive substance-induced mood disorder; F25.9 Schizoaffective disorder, unspecified; F31.9 Bipolar disorder, unspecified; R73.9 Hyperglycemia, unspecified; R76.11 Nonspecific reaction to tuberculin skin test without active tuberculosis; R63.4 Abnormal weight loss; Z68.23 Body mass index [BMI] 23.0-23.9, adult; Z98.890 Other specified postprocedural states; Z91.013 Allergy to seafood; Z56.0 Unemployment, unspecified; Z59.0 Homelessness
CPT/HCPCS: 36415; 71045-TC-FY; 80053; 82962; 85027; 86780; C9803; U0003

== ENCOUNTER 2021-02-06 16:42 | Inpatient (IN) | payer OTHER ==
[2021-02-06 17:24] VITALS: BMI 20.5
[2021-02-06] MEDS ORDERED: MELATONIN 5 MG TABLETS PO SCH (22:00)
[2021-02-06] MEDS ORDERED: NICOTINE POLACRILEX 4 MG GUM BUC PRN (23:01)
[2021-02-06] MEDS ORDERED: MAGNESIUM CITRATE 300 ML BOTTLE PO PRN (23:01)
[2021-02-06] MEDS ORDERED: LOPERAMIDE HCL 2 MG CAPSULE PO PRN (23:01)
[2021-02-06] MEDS ORDERED: IBUPROFEN 400 MG TABLET (FP) PO PRN (23:01)
[2021-02-06] MEDS ORDERED: MAGNESIUM HYDROX 2400MG/30ML ORAL SUSPENSION 30 ML CUP PO PRN (23:01)
[2021-02-06] MEDS ORDERED: guaiFENesin 200 MG/10 ML 10 ML UNIT-DOSE CUPS PO PRN (23:01)
[2021-02-06] MEDS ORDERED: MAG HYDROX/AL HYDROX/SIMETH 30 ML UNIT-DOSE CUP PO PRN (23:01)
[2021-02-06] MEDS ORDERED: ACETAMINOPHEN 325 MG TABLET (FP) PO PRN (23:01)
[2021-02-06] MEDS ORDERED: P-EPHED 60MG/TRIPROLIDI 2.5MG TABLET PO PRN (23:01)
[2021-02-07] MEDS: hydrOXYzine PAMOATE 25 MG CAPSULE (FP) PO SCH ×5 (06:39→23:00)
[2021-02-07 06:43] VITALS: TEMP 97.1
[2021-02-07] MEDS: PRENATAL VITAMINS W/ FOLIC ACID TABLET (FP) PO SCH (10:19)
[2021-02-07] MEDS: NICOTINE 21 MG/24 HOURS TOPICAL PATCH TD SCH (10:19)
[2021-02-07 10:36] LABS: PH,URINE 5.5 (5.0-8.0); URINE APPEARANCE CLEAR; URINE BILIRUBIN 1+ (NEGATIVE); URINE COLOR DK YELLOW; URINE GLUCOSE (UA) NEGATIVE (NEGATIVE); URINE KETONE TRACE (NEGATIVE); URINE LEUK ESTERASE NEGATIVE (NEGATIVE); URINE NITRITE NEGATIVE (NEGATIVE); URINE PROTEIN NEGATIVE (NEGATIVE)
[2021-02-07 10:40] LABS: HEMATOCRIT 38.8 % (35.4-49); MCH 33.1 pg (25.7-33.7); MCHC 33.6 g/dl (32.0-35.9); MEAN CELL VOLUME 98.6 fl (80-96); MEAN PLT VOLUME 6.7 fl (7.5-11.1); PLATELET COUNT 280 10^3/uL (134-434); RBC 3.94 M/mm3 (4.00-5.60); RDW 12.8 % (11.9-15.9); WHITE BLOOD COUNT 6.1 K/mm3 (4.0-10.0)
[2021-02-07 10:42] LABS: ALBUMIN 3.2 g/dl (3.4-5.0)
[2021-02-07 10:44] LABS: BLOOD UREA NITROGEN 16.6 mg/dL (7-18)
[2021-02-07 10:46] LABS: CREATININE 1.1 mg/dL (0.55-1.3)
[2021-02-07 10:47] LABS: BILIRUBIN,TOTAL 0.4 mg/dL (0.2-1)
[2021-02-07 12:19] LABS: HIV INTERPRETATION NEGATIVE (NEGATIVE)
[2021-02-07] MEDS ORDERED: MELATONIN 5 MG TABLETS PO PRN (14:25)
[2021-02-07] MEDS ORDERED: GABAPENTIN 400 MG CAPSULE PO SCH (22:00)
[2021-02-07] MEDS ORDERED: QUEtiapine FUMARATE 400 MG TABLET PO SCH (22:00)
[2021-02-07] MEDS ORDERED: THIAMINE HCL 100 MG TABLET (FP) PO SCH (22:00)
[2021-02-08 06:41] VITALS: BP 119/75; PULSE 67
[2021-02-08] MEDS: hydrOXYzine PAMOATE 25 MG CAPSULE (FP) PO SCH ×3 (07:09→13:41)
[2021-02-08] MEDS: NICOTINE 21 MG/24 HOURS TOPICAL PATCH TD SCH (10:03)
[2021-02-08] MEDS: PRENATAL VITAMINS W/ FOLIC ACID TABLET (FP) PO SCH (10:03)
[2021-02-08] MEDS ORDERED: hydrOXYzine PAMOATE 25 MG CAPSULE (FP) PO PRN (16:12)
== END 2021-02-08 17:59 | disposition left against medical advice (07) | DRG 770 ==
LOC: YASAS 16:42 → Y3E 23:46
PROVIDERS: ADMIT Allergy & Immunology; ATTEND Allergy & Immunology
PROC: HZ42ZZZ Group Counseling for Substance Abuse Treatment, Cognitive-Behavioral (ICD-10-PCS; principal; 2021-02-06)
DX: F10.20 Alcohol dependence, uncomplicated (principal); F14.20 Cocaine dependence, uncomplicated; F17.210 Nicotine dependence, cigarettes, uncomplicated; F19.282 Other psychoactive substance dependence with psychoactive substance-induced sleep disorder; F19.24 Other psychoactive substance dependence with psychoactive substance-induced mood disorder; F31.5 Bipolar disorder, current episode depressed, severe, with psychotic features; Z62.810 Personal history of physical and sexual abuse in childhood; Z86.69 Personal history of other diseases of the nervous system and sense organs; Z88.0 Allergy status to penicillin; Z91.013 Allergy to seafood; Z98.890 Other specified postprocedural states
CPT/HCPCS: 36415; 80053; 81003; 85027; 86780; 87389; C9803; U0003; U0005

== ENCOUNTER 2021-09-23 13:18 | Inpatient (IN) | payer OTHER ==
[2021-09-23 18:54] VITALS: BMI 23.6
[2021-09-23] MEDS ORDERED: diazePAM 5 MG TABLET PO PRN (21:13)
[2021-09-23] MEDS ORDERED: ACETAMINOPHEN 325 MG TABLET (FP) PO PRN ×2 (21:13)
[2021-09-23] MEDS ORDERED: diazePAM 5 MG TABLET PO ONE (21:13)
[2021-09-23] MEDS ORDERED: MAGNESIUM CITRATE 300 ML BOTTLE PO PRN (21:13)
[2021-09-23] MEDS ORDERED: MENTHOL/PHENOL 1 EACH UD MM PRN (21:13)
[2021-09-23] MEDS ORDERED: IBUPROFEN 400 MG TABLET (FP) PO PRN (21:13)
[2021-09-23] MEDS ORDERED: MAGNESIUM HYDROX 2400MG/30ML ORAL SUSPENSION 30 ML CUP PO PRN (21:13)
[2021-09-23] MEDS ORDERED: ONDANSETRON *ODT* 4 MG TABLET SL PRN (21:13)
[2021-09-23] MEDS ORDERED: LOPERAMIDE HCL 2 MG CAPSULE PO PRN (21:13)
[2021-09-23] MEDS ORDERED: hydrOXYzine PAMOATE 25 MG CAPSULE (FP) PO PRN (21:13)
[2021-09-23] MEDS ORDERED: METHOCARBAMOL 500 MG TABLET PO PRN (21:13)
[2021-09-23] MEDS ORDERED: MAG HYDROX/AL HYDROX/SIMETH 30 ML UNIT-DOSE CUP PO PRN (21:13)
[2021-09-23] MEDS ORDERED: BISMUTH SUBSALICYLATE 524 MG/30 ML PO PRN (21:13)
[2021-09-23] MEDS: diazePAM 5 MG TABLET PO SCH (22:39)
[2021-09-23] MEDS: GABAPENTIN 400 MG CAPSULE PO SCH (22:40)
[2021-09-23] MEDS: THIAMINE HCL 100 MG TABLET (FP) PO SCH (22:40)
[2021-09-23] MEDS: MELATONIN 5 MG TABLETS PO SCH (22:40)
[2021-09-24] MEDS: diazePAM 5 MG TABLET PO SCH ×4 (07:05→22:46)
[2021-09-24 11:34] LABS: HEMATOCRIT 39.3 % (35.4-49); HEMOGLOBIN 13.3 GM/dL (11.7-16.9); MCH 33.1 pg (25.7-33.7); MCHC 33.8 g/dl (32.0-35.9); MEAN CELL VOLUME 97.9 fl (80-96); MEAN PLT VOLUME 6.5 fl (7.5-11.1); PLATELET COUNT 268 10^3/uL (134-434); RBC 4.01 M/mm3 (4.00-5.60); RDW 12.7 % (11.9-15.9); WHITE BLOOD COUNT 5.6 K/mm3 (4.0-10.0)
[2021-09-24] MEDS: PRENATAL VITAMINS W/ FOLIC ACID TABLET (FP) PO SCH (11:43)
[2021-09-24 11:44] LABS: CALCIUM 8.1 mg/dL (8.5-10.1)
[2021-09-24 11:45] LABS: ALBUMIN 3.4 g/dl (3.4-5.0); BLOOD UREA NITROGEN 23.9 mg/dL (7-18)
[2021-09-24 11:48] LABS: BILIRUBIN,TOTAL 0.5 mg/dL (0.2-1); CREATININE 1.1 mg/dL (0.55-1.3); TOT PROT 6.2 g/dl (6.4-8.2)
[2021-09-24] MEDS ORDERED: PNEUMOCOCCAL 23 VACCINE 0.5 ML VIAL IM ONE (12:00)
[2021-09-24] MEDS ORDERED: PNEUMOC 13-VAL CONJ-DIP CRM/PF 0.5 ML DISP.SYRIN IM ONE (12:00)
[2021-09-24] MEDS: THIAMINE HCL 100 MG TABLET (FP) PO SCH (22:46)
[2021-09-24] MEDS: MELATONIN 5 MG TABLETS PO SCH (22:46)
[2021-09-24] MEDS: GABAPENTIN 400 MG CAPSULE PO SCH (22:46)
[2021-09-24] MEDS: QUEtiapine FUMARATE 200 MG TABLET PO SCH (22:46)
[2021-09-25] MEDS: diazePAM 5 MG TABLET PO SCH ×3 (05:47→22:32)
[2021-09-25] MEDS: PRENATAL VITAMINS W/ FOLIC ACID TABLET (FP) PO SCH (11:23)
[2021-09-25 14:08] LABS: SARS-CoV-2 NAA Not Detected (Not Detected)
[2021-09-25] MEDS: QUEtiapine FUMARATE 200 MG TABLET PO SCH (22:32)
[2021-09-25] MEDS: THIAMINE HCL 100 MG TABLET (FP) PO SCH (22:32)
[2021-09-25] MEDS: MELATONIN 5 MG TABLETS PO SCH (22:32)
[2021-09-25] MEDS: GABAPENTIN 400 MG CAPSULE PO SCH (22:32)
[2021-09-26] MEDS: diazePAM 5 MG TABLET PO SCH ×2 (06:26→18:27)
[2021-09-26] MEDS: PRENATAL VITAMINS W/ FOLIC ACID TABLET (FP) PO SCH (11:23)
[2021-09-26] MEDS: NICOTINE 10 MG CARTRIDGE (INHALER) IH PRN ×2 (14:31→18:29)
[2021-09-26] MEDS: MELATONIN 5 MG TABLETS PO SCH (22:12)
[2021-09-26] MEDS: GABAPENTIN 400 MG CAPSULE PO SCH (22:12)
[2021-09-26] MEDS: QUEtiapine FUMARATE 200 MG TABLET PO SCH (22:12)
[2021-09-26] MEDS: THIAMINE HCL 100 MG TABLET (FP) PO SCH (22:12)
[2021-09-27] MEDS ORDERED: diazePAM 5 MG TABLET PO ONE (06:00)
[2021-09-27 08:34] VITALS: BP 103/68; PULSE 64; TEMP 97.2
== END 2021-09-27 11:01 | disposition home or self-care (01) | DRG 774 ==
LOC: YASAS 13:18 → Y3N 20:55
PROVIDERS: ADMIT Allergy & Immunology; ATTEND Allergy & Immunology
PROC: HZ2ZZZZ Detoxification Services for Substance Abuse Treatment (ICD-10-PCS; principal; 2021-09-23)
DX: F10.230 Alcohol dependence with withdrawal, uncomplicated (principal); F14.20 Cocaine dependence, uncomplicated; F17.210 Nicotine dependence, cigarettes, uncomplicated; F19.24 Other psychoactive substance dependence with psychoactive substance-induced mood disorder; F31.9 Bipolar disorder, unspecified; F25.9 Schizoaffective disorder, unspecified; H55.00 Unspecified nystagmus; G62.9 Polyneuropathy, unspecified; Z88.0 Allergy status to penicillin; Z91.013 Allergy to seafood; Z86.11 Personal history of tuberculosis; Z56.0 Unemployment, unspecified; Z59.00 Homelessness unspecified
CPT/HCPCS: 36415; 71046-TC-FY; 80053; 85027; 86780; 90732; C9803; G0009; U0003; U0005